=== PATIENT | female | born 1990 | race African-American/Black ===

== ENCOUNTER 2020-07-20 01:20 | Inpatient (IN) | payer OTHER ==
[~2020-07-20] VITALS: Ht 160 cm; Wt 90.7 kg
--- NOTE | 2020-07-20 01:50 | NUR ---
Pt. c/o chest pain and back pain 10/20 w/ numbness radiating to arms. Pt has hx sickle cell disease and reports she had a tia in feb. Pt. also has hx dvt, date unclear. Pt axox4, denies dizziness, changes in vision, sob.
[2020-07-20] MEDS ORDERED: KETOROLAC TROMETHAMINE 30 MG INJ IVP ONE (02:15)
[2020-07-20] MEDS ORDERED: HYDROMORPHONE 1 MG/1 ML DISP.SYRIN IV ONE ×2 (02:15→05:15)
[2020-07-20] MEDS ORDERED: IV D5W-0.45% NS 1000 ML BAG IV ONE (02:15)
[2020-07-20] MEDS ORDERED: KETOROLAC TROMETHAMINE 30 MG INJ ONE (02:28)
[2020-07-20] MEDS ORDERED: HYDROMORPHONE 2 MG/1 ML DISP.SYRIN ONE ×2 (02:29→05:34)
[2020-07-20 02:42] LABS: HEMATOCRIT 27.6 % (31.2-41.9); MEAN CORPUSCULAR HEMOGLOBIN 23.2 uug (24.7-32.8); MEAN CORPUSCULAR VOLUME 72.8 fL (75.5-95.3); PLATELET COUNT (AUTO) 280 K/uL (179-408)
[2020-07-20 02:56] LABS: CREATININE 0.7 mg/dL (0.6-1.3); POTASSIUM 2.9 mmol/L (3.5-5.1)
[2020-07-20 03:10] LABS: ALANINE AMINOTRANSFERASE 14 U/L (14-59); ALKALINE PHOSPHATASE 71 U/L (50-136); ASPARTATE AMINOTRANSFERASE 9 U/L (15-37); BILIRUBIN,DIRECT 0.1 mg/dL (0.0-0.2); BILIRUBIN,TOTAL 0.2 mg/dL (0.2-1.0); CREATINE KINASE, TOTAL 54 U/L (26-192); MAGNESIUM 1.6 mg/dL (1.8-2.4); PHOSPHOROUS 2.6 mg/dL (2.5-4.9); TOTAL PROTEIN, SERUM 6.4 g/dL (6.4-8.2)
[2020-07-20 03:18] LABS: ETHANOL < 3 MG/DL (0-0)
--- NOTE | 2020-07-20 03:23 | NUR ---
The patient is having procedure. ER nurse will call the services tech when the patient is ready to be scanned.
[2020-07-20] MEDS ORDERED: POTASSIUM CHLORIDE 20 MEQ TAB.PRT.SR PO ONE ×2 (03:30→08:30)
[2020-07-20 03:45] LABS: THYROID STIMULATING HORMONE 1.576 mIU/mL (0.358-3.740)
[2020-07-20] MEDS ORDERED: diphenhydrAMINE 50 MG/1 ML VIAL IV ONE (04:00)
[2020-07-20] MEDS: MAGNESIUM SULFATE/D5W 100 ML IV SCH ×2 (04:00→04:38)
[2020-07-20] MEDS ORDERED: diphenhydrAMINE 50 MG/1 ML VIAL ONE (04:23)
[2020-07-20] MEDS ORDERED: MAGNESIUM SULFATE 1 GM/2 ML VIAL ONE ×2 (04:23→05:33)
[2020-07-20] MEDS ORDERED: POTASSIUM CHLORIDE 20 MEQ TAB.PRT.SR ONE (04:24)
[2020-07-20] MEDS ORDERED: POTASSIUM CHLORIDE 20 MEQ POWDER PACKET PO STA (04:38)
[2020-07-20] MEDS ORDERED: POTASSIUM CHLORIDE 20 MEQ POWDER PACKET ONE (05:34)
--- NOTE | 2020-07-20 05:59 | NUR ---
At 033 K-Dur tablet were withdrawn from [facility] and offered to pt but pt refused medication because she states it makes her nauseous. notified and order was switched to potassium chloride powder packet which the pt. took. Pt. was rolled over before K-Dur tablets were able to be wasted in the pyxis. K-Dur tablets were wasted in pharmeacutical waste bin.
[2020-07-20] MEDS ORDERED: ENOXAPARIN SODIUM 80 MG/0.8 ML DISP.SYRIN SQ ONE (06:00)
[2020-07-20] MEDS ORDERED: ASPIRIN 325 MG TABLET PO ONE (06:00)
--- NOTE | 2020-07-20 06:07 | NUR ---
Report given to Remigio GUNDERSON for admission of pt. to telemetry.
--- NOTE | 2020-07-20 06:10 | NUR ---
Medication ordered at 0559. Pt. was rolled over at 0550 so unable to administer aspirin and lovenox. Charge nurse of 3rd floor made aware.
[2020-07-20] MEDS ORDERED: HYDROCODONE/APAP 5-325MG TABLET PO PRN (06:45)
[2020-07-20] MEDS ORDERED: HYDROMORPHONE 1 MG/1 ML DISP.SYRIN IV PRN ×2 (06:45→12:45)
[2020-07-20] MEDS ORDERED: ACETAMINOPHEN 325 MG TABLET PO PRN (06:45)
[2020-07-20] MEDS ORDERED: ONDANSETRON 4 MG/2 ML VIAL IV PRN (06:45)
[2020-07-20] MEDS ORDERED: OXYC10TA49 PO (06:46)
[2020-07-20] MEDS ORDERED: FOLI1TAB94 PO (06:46)
[2020-07-20] MEDS ORDERED: ASCO500P18 PO (06:46)
[2020-07-20] MEDS ORDERED: HYDROXYUREA (06:52)
[2020-07-20 06:58] VITALS: BP 103/64
[2020-07-20] MEDS: PANTOPRAZOLE SODIUM 40 MG TABLET.DR PO SCH (07:00)
[2020-07-20] MEDS ORDERED: IV NORMAL SALINE 250 ML IV ONE (07:11)
[2020-07-20] MEDS ORDERED: SWABABLE VALVE TRANSFER SET EA MC ONE (07:11)
[2020-07-20] MEDS ORDERED: IOHEXOL 350 100 ML INFUS..BTL ONE (07:11)
--- NOTE | 2020-07-20 07:30 | NUR ---
pt in bed resting, c/o 09/19 medication to be administered as ordered, bed low and locked call light within reach. pt on room air, no signs of distress, IV access on the right upper arm 22g patent and intact. pt ambulatory, a/ox4, will continue to monitor.
[2020-07-20] MEDS ORDERED: MAGNESIUM SULFATE/D5W 100 ML IV SCH (08:30)
[2020-07-20] MEDS: FOLIC ACID 1 MG TABLET PO SCH (09:48)
[2020-07-20] MEDS: CLOPIDOGREL 75 MG TABLET PO SCH (09:48)
[2020-07-20] MEDS ORDERED: HYDR500C2 PO (10:38)
[2020-07-20] MEDS: HYDROMORPHONE 2 MG/1 ML DISP.SYRIN IV PRN ×4 (11:47→21:47)
[2020-07-20 12:00] VITALS: BP 105/64
--- NOTE | 2020-07-20 14:30 | NUR ---
RECEIVED PATIENT. A&O X3. CONVERSING ON TELEPHONE.
[2020-07-20 16:00] VITALS: BP 116/61
[2020-07-20] MEDS: diphenhydrAMINE 50 MG/1 ML VIAL IV PRN (16:46)
--- NOTE | 2020-07-20 17:00 | NUR ---
MED IVP FOR C/O ITCHING, WITH GOOD EFFECT AFTER 30 MINS.
--- NOTE | 2020-07-20 19:00 | NUR ---
Received patient in bed A/Ox3. Patient is watching shows on her tablet device and wished to be left alone. no SOB noted, no complaints of distress.
[2020-07-20] MEDS: DOCUSATE SODIUM 100 MG CAPSULE PO SCH ×3 (20:51→21:00)
[2020-07-20] MEDS ORDERED: DOCUSATE SODIUM 250 MG CAPSULE PO SCH (21:00)
--- NOTE | 2020-07-20 21:12 | NUR ---
Patient is not being cooperative and compliant with her care. She has refused vital sign check by myself and the IMPREGNATOR OPERATOR, and she has refused her 2100 Colace medication. I explained the risk of severe constipation associate with frequent narcotic use and that the stool softeners will help prevent those complications. She understands and adamantly refuses anything but her pain medications.
--- NOTE | 2020-07-21 | NUR ---
PATIENT REASSIGNED RECEIVED TO MY CARE AT THIS TIME SHE IS IN BED AWAKE ALERT AND ORIENTED CONCENTRATING ON HER LAPTOP ON ROOM AIR WITH NO SHORTNESS OF BREATH MID LINE AND PERIPHERAL LINES BOTH ON HER LEFT UPPER ARM REMAINS INTACT WITH NO S/S OF INFILTERATION AT THIS TIME.TELE IS SR WITH NO ECTOPY CALL LIGHTS AND HER PERSONAL BELONGINGS ARE WITHIN EASY REACH WILL CONTINUE TO OBSERVE AND PROVIDE COMFORT.
[2020-07-21 00:15] VITALS: BP 107/75
[2020-07-21] MEDS: diphenhydrAMINE 50 MG/1 ML VIAL IV PRN ×3 (00:52→18:23)
[2020-07-21] MEDS: HYDROMORPHONE 2 MG/1 ML DISP.SYRIN IV PRN ×8 (00:52→21:58)
--- NOTE | 2020-07-21 01:00 | NUR ---
PATIENT STATED HAVING PAIN AND ITCHING REQUESTED FOR DILAUDID AND BENADRYL MEDICATED ORDERED MADE COMFORTABLE AND WILL CONTINUE TO OBSERVE.
[2020-07-21 04:40] VITALS: BP 95/57
--- NOTE | 2020-07-21 06:50 | NUR ---
PATIENT CONTINUE TO ASK FOR PAIN MEDICATIONS EVERY 3 HOURS AT TIMES SOONER MEDICATED ORDERED MADE COMFORTABLE MIDLINE RIGHT ARM IS INTACT WILL CONTINUE TO OBSERVE.
[2020-07-21] MEDS: PANTOPRAZOLE SODIUM 40 MG TABLET.DR PO SCH (06:55)
[2020-07-21 08:06] LABS: HEMATOCRIT 29.4 % (31.2-41.9); MEAN CORPUSCULAR HEMOGLOBIN 23.3 uug (24.7-32.8); MEAN CORPUSCULAR VOLUME 73.5 fL (75.5-95.3); PLATELET COUNT (AUTO) 313 K/uL (179-408)
[2020-07-21] MEDS: FOLIC ACID 1 MG TABLET PO SCH (08:16)
[2020-07-21] MEDS: CLOPIDOGREL 75 MG TABLET PO SCH (08:16)
[2020-07-21 08:22] LABS: BILIRUBIN,TOTAL 0.1 mg/dL (0.2-1.0); CREATININE 0.7 mg/dL (0.6-1.3); MAGNESIUM 1.8 mg/dL (1.8-2.4); PHOSPHOROUS 4.7 mg/dL (2.5-4.9); POTASSIUM 4.2 mmol/L (3.5-5.1); TOTAL PROTEIN, SERUM 6.6 g/dL (6.4-8.2)
--- NOTE | 2020-07-21 09:13 | NUR ---
CARE OF PATIENT ENDORSED PATIENT REMAINS AWAKE ALERT AND ORIENTED BLOOD PRESSURE AT THIS TIME IS 100/67
--- NOTE | 2020-07-21 10:12 | NUR ---
asleep when first taken over this patient, requested Dilaudid and Benadryl ivp together at 0945, secondary to sickle cell crisis, given. alert, oriented, and on bedrest
[2020-07-21 11:21] VITALS: BP 107/67
[2020-07-21 14:43] LABS: *BILIRUBIN,URIN NEGATIVE (NEGATIVE); *BLOOD, URINE NEGATIVE (NEGATIVE); *CLARITY,URINE CLEAR (CLEAR); *COLOR,URINE LIGHT YELLOW (YELLOW); *KETONES,URINE NEGATIVE (NEGATIVE); *UROBILINOGEN,URINE 0.2 E.U./dl (NORMAL); LEUKOCYTE ESTERASE ,URINE NEGATIVE (NEGATIVE); NITRITE, URINE NEGATIVE (NEGATIVE); UGLUCOSE NEGATIVE (NEGATIVE)
[2020-07-21 14:47] LABS: *AMPHETAMINE, URINE NEGATIVE (NEGATIVE); *CANNABINOID, URINE NEGATIVE (NEGATIVE); *COCCAINE, URINE NEGATIVE (NEGATIVE); *OPIATE, URINE POSITIVE (NEGATIVE); *PHENCYCLIDINE SCREEN,URINE NEGATIVE (NEGATIVE)
[2020-07-21 14:52] LABS: EOSINOPHILS % (MANUAL) 6 % (0-8); LYMPHOCYTES % (MANUAL) 20 % (20-40); MONOCYTES % (MANUAL) 14 % (2-10); NEUTROPHILS % (MANUAL) 60 % (42-75)
[2020-07-21 15:23] VITALS: BP 95/53
--- NOTE | 2020-07-21 15:25 | NUR ---
on hourly round, " became sob, ", advised to sit up in bed, and 2liter NC applied, requested 3liter, given asked if she could have Dilaudid earlier than 1544, " felt chest tightness", 2mg Dilaudid given per her request.
--- NOTE | 2020-07-21 20:00 | NUR ---
PATIENT ALERT ORIENTED, NO SOB NO CHEST PAIN NOTED, TELE MONITOR SINUS RHYTHM SINUS TACHY, PATIENT CONT ROUND THE CLOCK PAIN MEDICATION, PATIENT IN ROOM WATCHING ON HER LAP TOP, RELAX NO S/S OF PAIN. WILL MEDICATE FOR PAIN ORDERED.
[2020-07-21] MEDS: DOCUSATE SODIUM 100 MG CAPSULE PO SCH (20:02)
[2020-07-21 20:30] VITALS: BP 102/53
[2020-07-22 00:05] VITALS: BP 116/53
[2020-07-22] MEDS: HYDROMORPHONE 2 MG/1 ML DISP.SYRIN IV PRN ×3 (01:04→07:35)
[2020-07-22 04:35] VITALS: BP 110/86
[2020-07-22] MEDS: diphenhydrAMINE 50 MG/1 ML VIAL IV PRN (05:07)
--- NOTE | 2020-07-22 05:18 | NUR ---
PATIENT ALERT ORIENTED, NO SOB NO CHEST PAIN, TELE MONITOR SINUS RHYTHM SINUS TACHY, CONT ON PAIN MANAGEMENT DUE SICKLE CELL GEN BODY PAIN. PATIENT GIVEN PAIN MEDS ORDERED, CONT TO MONITOR.
[2020-07-22] MEDS: PANTOPRAZOLE SODIUM 40 MG TABLET.DR PO SCH (06:36)
[2020-07-22] MEDS: CLOPIDOGREL 75 MG TABLET PO SCH (08:13)
[2020-07-22] MEDS: FOLIC ACID 1 MG TABLET PO SCH (08:13)
[2020-07-22] MEDS ORDERED: HYDROMORPHONE 2 MG/1 ML DISP.SYRIN IV PRN (10:00)
[2020-07-22] MEDS ORDERED: diphenhydrAMINE 50 MG/1 ML VIAL IV PRN (10:00)
--- NOTE | 2020-07-22 10:10 | NUR ---
Patient received in bed awake, alert and oriented times 4. Patient is talking on the phone. No sign of distress noted. Patient is on room air. Patient has a right upper arm midline. Safety precaution methods are implemented. Will continue to monitor.
[2020-07-22] MEDS: HYDROMORPHONE 1 MG/1 ML DISP.SYRIN IV PRN ×2 (10:39→10:44)
[2020-07-22 11:22] VITALS: BP 105/52
--- NOTE | 2020-07-22 13:20 | NUR ---
Patient discharge to home with all belongings, paperwork and discharge instructions. Discharge teaching completed. ID band and midline removed. Belongings list completed and signed. Patient is stable with no sign of distress noted. Patient walked out of facility and her vehicle was parked in parking structure by security. All medications given as ordered.
== END 2020-07-22 13:20 | disposition home or self-care (01) | DRG 662 ==
LOC: ER 01:26 → TELE3 06:15
PROVIDERS: ADMIT Internal Medicine; ATTEND Internal Medicine
DX: D57.00 Hb-SS disease with crisis, unspecified (principal); E87.6 Hypokalemia; Z90.49 Acquired absence of other specified parts of digestive tract; Z90.81 Acquired absence of spleen; Z86.73 Personal history of transient ischemic attack (TIA), and cerebral infarction without residual deficits; Z86.718 Personal history of other venous thrombosis and embolism; Z20.822 Contact with and (suspected) exposure to COVID-19
CPT/HCPCS: 36415; 70030-TC; 70450; 71045; 71250; 83735; 84100; 84443; 85025; 93005; 93307; A4663; G0378; G0480; J1170; J1200; J1885; J3475; J3490; J7050; J7060; Q9967

== ENCOUNTER 2020-10-12 06:13 | Emergency (ER) | payer SELFPAY ==
[~2020-10-12] VITALS: Ht 160 cm; Wt 88.5 kg
[~2020-10-12 06:13] MED LIST: ASCO500P18 PO; FOLI1TAB94 PO; HYDR500C2 PO; OXYC10TA49 PO
[2020-10-12] MEDS ORDERED: diphenhydrAMINE 50 MG/1 ML VIAL IV ONE ×2 (06:45→09:45)
[2020-10-12] MEDS ORDERED: IV NORMAL SALINE 1000 ML BAG IV ONE (06:45)
[2020-10-12] MEDS ORDERED: ONDANSETRON 4 MG/2 ML VIAL IV ONE (06:45)
[2020-10-12] MEDS ORDERED: HYDROMORPHONE 1 MG/1 ML DISP.SYRIN IV ONE ×2 (06:45→09:45)
[2020-10-12] MEDS ORDERED: ASPI81TA31 PO (06:53)
[2020-10-12 07:17] LABS: HEMATOCRIT 30.7 % (31.2-41.9); MEAN CORPUSCULAR HEMOGLOBIN 21.5 uug (24.7-32.8); MEAN CORPUSCULAR VOLUME 68.8 fL (75.5-95.3); PLATELET COUNT (AUTO) 395 K/uL (179-408)
[2020-10-12 07:26] LABS: POTASSIUM 3.7 mmol/L (3.5-5.1)
[2020-10-12 07:32] LABS: BILIRUBIN,DIRECT 0.1 mg/dL (0.0-0.2); BILIRUBIN,TOTAL 0.3 mg/dL (0.2-1.0); TOTAL PROTEIN, SERUM 7.6 g/dL (6.4-8.2)
[2020-10-12] MEDS ORDERED: diphenhydrAMINE 50 MG/1 ML VIAL ONE ×2 (08:01→09:42)
[2020-10-12] MEDS ORDERED: ONDANSETRON 4 MG/2 ML VIAL ONE (08:01)
[2020-10-12] MEDS ORDERED: HYDROMORPHONE 2 MG/1 ML DISP.SYRIN ONE ×2 (08:01→09:42)
--- NOTE | 2020-10-12 08:21 | NUR ---
Grayson huddleston in [facility] - 10/12/20 at 0910 by VENUS Gave report to NEPTALI Bedoya
--- NOTE | 2020-10-12 09:01 | NUR ---
IV site on RT FA infiltrated, remove line. Pt states not being nausous anymore and is drinking water.
--- NOTE | 2020-10-12 09:50 | NUR ---
Removed IV intact, site okay, bandaged. Gave pt RX and d/c instructions, pt verbalized understanding.
[2020-10-12 09:54] VITALS: BP 110/78
== END 2020-10-12 09:55 | disposition home or self-care (01) ==
LOC: ER 06:23
DX: D57.00 Hb-SS disease with crisis, unspecified (principal); Z90.49 Acquired absence of other specified parts of digestive tract; Z90.81 Acquired absence of spleen; Z86.73 Personal history of transient ischemic attack (TIA), and cerebral infarction without residual deficits; Z86.711 Personal history of pulmonary embolism
CPT/HCPCS: 36415; 71045; 76937; 80048; 80076; 84484; 84702; 85025; 93005; 96374; 96375; 96376; 99285; J1170 ×2; J1200 ×2; J2405; 70030-TC; J7030

== ENCOUNTER 2020-10-14 12:27 | Inpatient (IN) | payer SELFPAY ==
[~2020-10-14] VITALS: Ht 160 cm; Wt 88.5 kg
[~2020-10-14 12:27] MED LIST changes: +ASPI81TA31 PO
--- NOTE | 2020-10-14 13:07 | NUR ---
Patient refused COVID test, notified. " I have sicke cell. I don't want Covid test." per patient's verbalization.
[2020-10-14] MEDS ORDERED: MORPHINE SULFATE 4 MG/1 ML DISP.SYRIN IV ONE (13:15)
--- NOTE | 2020-10-14 13:22 | NUR ---
Patient refused IV Morphine. "I want Dilaudid." per patient's verbalization, notified.
[2020-10-14] MEDS ORDERED: MORPHINE SULFATE 4 MG/1 ML DISP.SYRIN ONE (13:24)
[2020-10-14] MEDS ORDERED: ONDANSETRON 4 MG/2 ML VIAL IV ONE (13:30)
[2020-10-14] MEDS ORDERED: HYDROMORPHONE 1 MG/1 ML DISP.SYRIN IV ONE ×3 (13:30→17:15)
[2020-10-14] MEDS ORDERED: ONDANSETRON 4 MG/2 ML VIAL ONE (13:34)
[2020-10-14] MEDS ORDERED: HYDROMORPHONE 1 MG/1 ML DISP.SYRIN ONE ×3 (13:40→17:18)
[2020-10-14 13:44] LABS: HEMATOCRIT 32.5 % (31.2-41.9); MEAN CORPUSCULAR HEMOGLOBIN 21.6 uug (24.7-32.8); MEAN CORPUSCULAR VOLUME 70.8 fL (75.5-95.3); PLATELET COUNT (AUTO) 352 K/uL (179-408)
--- NOTE | 2020-10-14 13:44 | NUR ---
Patient want Benadryl after IV Dilaudid was given. No rashes seen. MD notified.
[2020-10-14 13:47] LABS: CREATININE 0.9 mg/dL (0.6-1.3); POTASSIUM 3.8 mmol/L (3.5-5.1)
[2020-10-14] MEDS ORDERED: IV NORMAL SALINE 1000 ML BAG IV ONE (14:00)
--- NOTE | 2020-10-14 14:25 | NUR ---
Patient is resting comfortably on gurney while using her personal electronic device, NAD.
--- NOTE | 2020-10-14 14:38 | NUR ---
Patient wants more IV MD Miya notified.
--- NOTE | 2020-10-14 16:24 | NUR ---
Patient is refusing COVID test until she gets more IV MD Miya notified.
--- NOTE | 2020-10-14 17:15 | NUR ---
Immediately after IV Dilaudid, patient wants Benadryl. MD notified.
--- NOTE | 2020-10-14 17:24 | NUR ---
Patient is seen busy talking using her cellphone, NAD, pending assigned med-surgical nurse & bed@this time.
[2020-10-14] MEDS ORDERED: diphenhydrAMINE 25 MG CAP PO ONE ×2 (17:30→17:33)
--- NOTE | 2020-10-14 17:30 | NUR ---
Patient refused oral Benadryl and wants IV MD Jersey notified.
--- NOTE | 2020-10-14 18:13 | NUR ---
Pending urine specimen still, hands off report given to nurse Salcedo.
[2020-10-14 18:18] VITALS: BP 107/67
--- NOTE | 2020-10-14 19:30 | NUR ---
RECEIVED PT AWAKE, ALERT AND ORIENTEDX4. PT IN NO ACUTE DISTRESS. IV INTACT. SAFETY AND COMFORT PROVIDED. WILL CONTINUE TO MONITOR.
[2020-10-14] MEDS ORDERED: ACETAMINOPHEN 325 MG TABLET PO PRN (19:45)
[2020-10-14] MEDS ORDERED: ONDANSETRON 4 MG/2 ML VIAL IV PRN (19:45)
[2020-10-14] MEDS ORDERED: HYDROCODONE/APAP 5-325MG TABLET PO PRN (19:45)
[2020-10-14] MEDS ORDERED: MORPHINE SULFATE 2 MG/1 ML DISP.SYRIN IV PRN (19:45)
[2020-10-14] MEDS ORDERED: MAGNESIUM HYDROXIDE 30 ML LIQUID UDC PO PRN (19:45)
[2020-10-14] MEDS ORDERED: Z GUARD REMEDY PASTE 57 GM TUBE TOP PRN (19:45)
[2020-10-14] MEDS: HYDROMORPHONE 2 MG/1 ML DISP.SYRIN IV PRN (20:31)
[2020-10-14] MEDS: IV 1/2NS 1000 ML 1,000 ML IV PRN (20:34)
[2020-10-14] MEDS: ENOXAPARIN SODIUM 40 MG/0.4 ML DISP.SYRIN SQ SCH (20:35)
--- NOTE | 2020-10-14 22:24 | NUR ---
At 2030h Dilaudid prn 2mg given for 10/10 pain. PT tolerated it well. After an hour pt stated it felt better but still having some pain. Will continue to monitor.
--- NOTE | 2020-10-14 23:00 | NUR ---
notify DR. Saul regarding pt requesting Dilaudid q3h instead of q4h. Waiting for reply. Hands off report to Hayley GUNDERSON
[2020-10-15] MEDS: HYDROMORPHONE 2 MG/1 ML DISP.SYRIN IV PRN ×8 (00:32→22:06)
[2020-10-15] MEDS: ZOLPIDEM 5 MG TABLET PO PRN ×2 (01:21→23:00)
[2020-10-15] MEDS: diphenhydrAMINE 25 MG CAP PO PRN (04:25)
[2020-10-15 04:50] VITALS: BP 109/61
[2020-10-15] MEDS ORDERED: diphenhydrAMINE 50 MG/1 ML VIAL IV ONE ×2 (05:30→14:15)
[2020-10-15] MEDS: IV 1/2NS 1000 ML 1,000 ML IV PRN (05:42)
--- NOTE | 2020-10-15 06:07 | NUR ---
Received report for patient from NEPTALI Taylor at 2300H. In no acute distress upon receiving patient. Receiving ordered fluids. Pain medications given PRN per patient's request. This morning, patient c/o full body itching and throat itching. Yung Esparza DREDGE PUMP OPERATOR notified with orders for one time Benadryl 50mg IV. Tolerated well. No acute distress noted. Denies SOB but patient is requesting to have oxygen via nasal canula for support. Will endorse to oncoming nurse.
[2020-10-15] MEDS: PANTOPRAZOLE SODIUM 40 MG TABLET.DR PO SCH (06:36)
--- NOTE | 2020-10-15 06:44 | NUR ---
Pt refused AM labs
[2020-10-15 12:13] VITALS: BP 100/57
--- NOTE | 2020-10-15 14:00 | NUR ---
Pt seen by DR Saul notified of pt c/o "RASH and HIVEs under her tight upper arm IV site secondary to Dilaudid per patient." NO rash noted or hives noted but pt insist that there are rash and hives under the IV site.
[2020-10-15 16:20] VITALS: BP 110/59
--- NOTE | 2020-10-15 17:30 | NUR ---
DR NORWOOD here to see patient for pain management . new order received.
[2020-10-15] MEDS ORDERED: OXYCODONE HCL 5 MG TABLET PO PRN (18:15)
[2020-10-15 18:26] LABS: *AMPHETAMINE, URINE NEGATIVE (NEGATIVE); *CANNABINOID, URINE NEGATIVE (NEGATIVE); *COCCAINE, URINE NEGATIVE (NEGATIVE); *OPIATE, URINE POSITIVE (NEGATIVE); *PHENCYCLIDINE SCREEN,URINE NEGATIVE (NEGATIVE)
[2020-10-15 18:54] LABS: *URINE HCG, QUAL NEGATIVE (NEGATIVE)
[2020-10-15 20:09] VITALS: BP 117/70
[2020-10-15] MEDS: ENOXAPARIN SODIUM 40 MG/0.4 ML DISP.SYRIN SQ SCH ×2 (20:39→20:42)
[2020-10-16] MEDS: HYDROMORPHONE 2 MG/1 ML DISP.SYRIN IV PRN ×8 (01:37→23:58)
--- NOTE | 2020-10-16 05:10 | NUR ---
Received pt resting in bed. Axo 4. VSS. C/o of germanize pain and wants IV Dilaudid Q3H PRN. Administered Dilaudid @5829, 2296, 8330. Patient aware of other medication available for pain and only requests for Dilaudid. IV site on right hand and right upper chest wall infiltrated. Established new IV site left hand 24 g, patent and intact running Fluids. Pt calling around the clock. Pt request ambien administered. Patient wanted Benadryl after IV Dilaudid was given. No rashes seen, not given. Pt refused Lovenox. Pt slept poorly throughout he night. Needs attended to in a timely manner. Safety measures maintained. call light and all personal belongings within pt reach. Will endorse to oncoming nurse and continue to monitor. Addendum: 10/16/20 at 0651 by LIBERTAD LIMA RN RN generalized pain due to sick cell
[2020-10-16 05:53] VITALS: BP 111/60
[2020-10-16] MEDS: PANTOPRAZOLE SODIUM 40 MG TABLET.DR PO SCH (06:29)
--- NOTE | 2020-10-16 06:51 | NUR ---
pt requesting PRN Dilaudid medication every 3 hours and and ahead of schedule. Pt is upset not received medications in a timely manner. Discussed with pt if medications is effective, if not encouraged pt to take oxycodone PRN. Pt refused. Discussed with nursing Window Cutter, made aware of the situation. Will endorse to oncoming shift accordingly.
[2020-10-16 07:27] LABS: HEMATOCRIT 30.2 % (31.2-41.9); MEAN CORPUSCULAR HEMOGLOBIN 21.8 uug (24.7-32.8); PLATELET COUNT (AUTO) 372 K/uL (179-408)
[2020-10-16 07:38] LABS: CREATININE 0.9 mg/dL (0.6-1.3); PHOSPHOROUS 4.2 mg/dL (2.5-4.9); POTASSIUM 4.2 mmol/L (3.5-5.1)
--- NOTE | 2020-10-16 07:57 | NUR ---
patient received laying in bed aox4, patient states she is having 9/10 pain, pain radiating from joints per patient, patient requests prn dilaudid, prn dialudid administered, per patient "i am itchy im getting rashes and began to scratch on left hand near iv site." request benadryl for rashes. assessed patient, there are not rashes to surrounding area or any where in body, explained to patient that i will closely monitor and if rashes do appear md will be notified and prn antihistamine will be administer. call light within reach, side rails up x 2. iv site to left hand in place and patent, flushing fine, no redness to surrounding area, no seeping noted from site.
[2020-10-16] MEDS: IV 1/2NS 1000 ML 1,000 ML IV PRN (08:06)
[2020-10-16 08:48] LABS: THYROID STIMULATING HORMONE 2.666 mIU/mL (0.358-3.740)
--- NOTE | 2020-10-16 09:57 | NUR ---
patient called asking for prn Dilaudid, explained to patient that PRN Dilaudid is every 3 hours and it was too soon to administer, offered other pain medication, patient visibly upset states " no ill wait."
[2020-10-16 12:00] VITALS: BP 107/47
[2020-10-16 16:15] VITALS: BP 97/52
--- NOTE | 2020-10-16 17:43 | NUR ---
1054: patient called stating pain 9/10 from joints, requesting prn dialudid and asking if iv site could be switched. iv site reassessed flushing well, no resistance, surrounding area is free of redness of swelling, reassured patient iv site is working well and there is no need to start a new line. patient asked for following pain medication time and patient made aware she could receive pain medication in 3 hours around 1354.
--- NOTE | 2020-10-16 17:47 | NUR ---
patient calling for prn Dilaudid states "why do you guys so too long to come", explained to patient that medication can only be administered at correct times and not earlier but that there are other medications available, patient again stating that iv site needs to be changed, iv site reassessed, iv site patent, no resistance, free from swelling or redness. explained to patient that iv site remains patent. per patient "ok" IV Dilaudid administered at 1747 no adverse reactions noted. side rails up x2, call light within reach, v/s wnl, rr: 19
--- NOTE | 2020-10-16 20:00 | NUR ---
Pt a/ox4, c/o pain 11/19 r/t sickle cell crisis, pain med not due til 2047. Pt also requested iv Benadryl. Pt informed that PO is ordered. Pt refused PO and asked if i can page the md. I texted md but not response. 0315 Pt asked to page md and I received call back from md but no order. I encouraged to take PO Benadryl, pt agreed then few minutes she stated that she was going ama because still having pain and having personal issues. Pt said, "that she was taking uber to her boyfriend's house because they have broken up and her car is there."
[2020-10-16 20:18] VITALS: BP 111/65
[2020-10-16] MEDS: ENOXAPARIN SODIUM 40 MG/0.4 ML DISP.SYRIN SQ SCH (21:00)
[2020-10-17] MEDS: ZOLPIDEM 5 MG TABLET PO PRN (01:14)
[2020-10-17] MEDS: HYDROMORPHONE 2 MG/1 ML DISP.SYRIN IV PRN ×2 (03:00→04:34)
[2020-10-17] MEDS: diphenhydrAMINE 25 MG CAP PO PRN (03:31)
== END 2020-10-17 07:00 | disposition left against medical advice (07) | DRG 812 ==
LOC: ER 12:27 → MEDSURG3 17:55
PROVIDERS: ADMIT Student in an Organized Health Care Education/Training Program; ATTEND Student in an Organized Health Care Education/Training Program
DX: D57.00 Hb-SS disease with crisis, unspecified (principal); G89.4 Chronic pain syndrome; Z79.891 Long term (current) use of opiate analgesic; Z82.49 Family history of ischemic heart disease and other diseases of the circulatory system; Z86.711 Personal history of pulmonary embolism; Z86.73 Personal history of transient ischemic attack (TIA), and cerebral infarction without residual deficits; Z90.81 Acquired absence of spleen; Z83.3 Family history of diabetes mellitus; Z88.0 Allergy status to penicillin; Z20.822 Contact with and (suspected) exposure to COVID-19; Z82.3 Family history of stroke
CPT/HCPCS: 36415; 70030-TC; 71045; 84100; 84443; 84703; 85025; G0378; J1170; J1200; J1650; J2270; J2405; J3490; Q0163

== ENCOUNTER 2020-11-12 18:43 | Inpatient (IN) | payer SELFPAY ==
[~2020-11-12] VITALS: Ht 160 cm; Wt 91.2 kg
--- NOTE | 2020-11-12 19:30 | NUR ---
Dr. Ardon at bedside for MSE.
[2020-11-12] MEDS ORDERED: HYDROMORPHONE 1 MG/1 ML DISP.SYRIN IV ONE ×3 (19:45→23:00)
[2020-11-12] MEDS ORDERED: ONDANSETRON 4 MG/2 ML VIAL IV ONE (19:45)
[2020-11-12] MEDS ORDERED: IV NS 1000 ML 1,000 ML IV ONE ×3 (19:45→23:00)
[2020-11-12] MEDS ORDERED: diphenhydrAMINE 50 MG/1 ML VIAL IV ONE ×2 (19:45→22:00)
[2020-11-12] MEDS ORDERED: ONDANSETRON 4 MG/2 ML VIAL ONE (20:02)
[2020-11-12] MEDS ORDERED: HYDROMORPHONE 2 MG/1 ML DISP.SYRIN ONE ×3 (20:02→23:21)
[2020-11-12] MEDS ORDERED: diphenhydrAMINE 50 MG/1 ML VIAL ONE ×2 (20:02→21:17)
[2020-11-12 20:12] LABS: HEMATOCRIT 31.2 % (31.2-41.9); MEAN CORPUSCULAR VOLUME 66.8 fL (75.5-95.3); PLATELET COUNT (AUTO) 495 K/uL (179-408)
[2020-11-12 20:18] LABS: CREATININE 0.9 mg/dL (0.6-1.3); POTASSIUM 3.7 mmol/L (3.5-5.1)
[2020-11-12 20:33] LABS: EOSINOPHILS % (MANUAL) 6 % (0-8); LYMPHOCYTES % (MANUAL) 30 % (20-40); MONOCYTES % (MANUAL) 7 % (2-10); NEUTROPHILS % (MANUAL) 57 % (42-75)
--- NOTE | 2020-11-12 23:05 | NUR ---
Paged Epic panel, waiting for Yung Esparza RECEIVABLE MANAGER to call back.
--- NOTE | 2020-11-12 23:48 | NUR ---
Dr. Ardon on panel call with Yung Esparza DNP. Patient accepted for admission to [facility], diagnosis: Sickle Cell Crisis.
[2020-11-13] MEDS ORDERED: diphenhydrAMINE 50 MG/1 ML VIAL ONE (00:09)
[2020-11-13] MEDS ORDERED: ACETAMINOPHEN 325 MG TABLET PO PRN (00:15)
[2020-11-13] MEDS ORDERED: diphenhydrAMINE 50 MG/1 ML VIAL IV ONE (00:15)
[2020-11-13] MEDS ORDERED: ONDANSETRON 4 MG/2 ML VIAL IV PRN (00:15)
[2020-11-13] MEDS ORDERED: Z GUARD REMEDY PASTE 57 GM TUBE TOP PRN (00:15)
[2020-11-13] MEDS: ENOXAPARIN SODIUM 40 MG/0.4 ML DISP.SYRIN SQ SCH ×3 (00:15→20:48)
--- NOTE | 2020-11-13 00:50 | NUR ---
Transfered to 3rd floor Tele via wheelchair with no distress noted.
[2020-11-13] MEDS: IV 1/2NS 1000 ML 1,000 ML IV PRN ×2 (01:18→21:27)
[2020-11-13 01:43] VITALS: BP 122/80
[2020-11-13] MEDS: HYDROMORPHONE 1 MG/1 ML DISP.SYRIN IV PRN ×2 (02:07→06:06)
[2020-11-13 04:43] VITALS: BP 105/61
--- NOTE | 2020-11-13 05:11 | NUR ---
Pt admitted to [facility] for sickle cell crisis. Denies SOB. C/o pain that is relieved by morphine. Pt requested that her Dilaudid 2mg Q4H be changed to Q3H and also requested IV Benadryl, HOME HEALTH CARE PROVIDER Reese Rajan notified but he declined the patient's request. IV site is intact. Pt keeps removing her car shagger. Explained purpose of monitor but patient still keeps taking it off. Otherwise patient is not in any distress at this time. Will endorse to day shift. Addendum: 11/13/20 at 0515 by ANIBAL RODRIGUEZ RN Pain is relieved by Dilaudid, not Morphine.
[2020-11-13] MEDS: ASPIRIN 81 MG TAB.CHEW PO SCH (08:41)
[2020-11-13] MEDS: FOLIC ACID 1 MG TABLET PO SCH (08:41)
[2020-11-13] MEDS: PANTOPRAZOLE SODIUM 40 MG VIAL IV SCH (08:41)
[2020-11-13] MEDS: ASCORBIC ACID 500 MG TABLET PO SCH (08:41)
[2020-11-13] MEDS: HYDROXYUREA 500 MG CAPSULE PO SCH ×2 (09:00→17:00)
[2020-11-13 09:35] LABS: MEAN CORPUSCULAR HEMOGLOBIN 21.5 uug (24.7-32.8); MEAN CORPUSCULAR VOLUME 67.6 fL (75.5-95.3); PLATELET COUNT (AUTO) 426 K/uL (179-408)
[2020-11-13 09:37] LABS: BILIRUBIN,TOTAL 0.2 mg/dL (0.2-1.0); MAGNESIUM 1.7 mg/dL (1.8-2.4); PHOSPHOROUS 4.1 mg/dL (2.5-4.9); POTASSIUM 3.9 mmol/L (3.5-5.1); TOTAL PROTEIN, SERUM 6.6 g/dL (6.4-8.2)
[2020-11-13] MEDS ORDERED: HYDROMORPHONE 2 MG/1 ML DISP.SYRIN IV PRN (09:45)
[2020-11-13 09:46] LABS: THYROID STIMULATING HORMONE 2.237 mIU/mL (0.358-3.740)
[2020-11-13 11:42] VITALS: BP 119/65
[2020-11-13] MEDS: HYDROMORPHONE 2 MG/1 ML DISP.SYRIN IV PRN ×3 (13:03→21:23)
[2020-11-13] MEDS: diphenhydrAMINE 50 MG/1 ML VIAL IV PRN ×2 (14:00→21:23)
--- NOTE | 2020-11-13 14:15 | NUR ---
Pt is a/o x 4, sinus rhythm, on room air. She is ambulatory, has R upper arm and R AC IV access 22 g. Pt asks for Dilaudid Q3H for generalized pain and also gets Benadryl Q8H for itchiness from Dilaudid. No visible rash or reaction noted. Pt is currently not in acute distress. Will continue to monitor.
[2020-11-13 16:00] VITALS: BP 98/58
--- NOTE | 2020-11-13 19:00 | NUR ---
Pt complained of Right upper arm Iv access stiffness. No apparent infiltration. endorsed to table games shift manager. Able to flush R AC iv access.
--- NOTE | 2020-11-13 19:35 | NUR ---
RECEIVED PATIENT AWAKE IN BED. A/O X4. PATIENT IS UPSET, C/O DISCOMFORT IN RIGHT UPPER/LOWER ARM. IV HEPLOCK X2 NOTED, BOTH #20 GAUGES. REDNESS AND SWELLING NOTED TO AROUND SITES, UNABLE TO FLUSH AND WHEN REMOVED, BOTH IV'S ALREADY BENT AND DISLODGED. SUPERVISOR STAVE CUTTING AT BEDSIDE TO FURTHER ASSESS. PATIENT STATED THAT SHE HAS BEEN C/O OF PAIN SINCE 0. WILL CONTINUE TO MONITOR AND ASSESS.
[2020-11-13 20:00] VITALS: BP_SYST 105; BP_SYST 117; BP_DIAS 63; BP_DIAS 66
--- NOTE | 2020-11-13 21:30 | NUR ---
CLINICAL STAFF ANESTHESIOLOGIST AT BEDSIDE TO INSERT NEW IV. PATIENT IS A VERY HARD STICK.
--- NOTE | 2020-11-13 23:00 | NUR ---
MID-LINE NURSE AT BEDSIDE TO INSERT MID-LINE. MID-LINE NOTED TO RIGHT UPPER ARM #18 GAUGE, IVF INFUSING WELL ORDERED. ALL NEEDS ATTENDED. WILL CONTINUE TO MONITOR AND ASSESS.
[2020-11-14] VITALS: BP_SYST 110; BP_SYST 111; BP_DIAS 52
[2020-11-14] MEDS: HYDROMORPHONE 2 MG/1 ML DISP.SYRIN IV PRN ×3 (00:45→08:36)
[2020-11-14 04:00] VITALS: BP 111/60
[2020-11-14] MEDS: IV 1/2NS 1000 ML 1,000 ML IV PRN (05:33)
--- NOTE | 2020-11-14 06:27 | NUR ---
PATIENT ASLEEP IN BED. ON TELE SR. VS WNL. SLEPT AT INTERVALS THROUGHOUT THE NIGHT. CALL LIGHT IN REACH. WILL CONTINUE TO MONITOR AND ASSESS.
--- NOTE | 2020-11-14 08:00 | NUR ---
Midline was inserted on right upper arm 18g during night filler due to infiltrated IV access.
--- NOTE | 2020-11-14 08:00 | NUR ---
Received pt from night auditor RN. pt is awake in room, complaining of generalized pain in the back. She also asks for benadryl because she states that she gets itchy from the Dilaudid. No visible rash on pt upon assessment. Pt is refusing to take hydroxyurea at all due hours. She stated that she had a stillborn a month ago from taking the medication while and is traumatized and does not want that medication. Provided pain medication and benadryl, will continue to monitor.
--- NOTE | 2020-11-14 08:35 | NUR ---
D/Cd from telemetry per MD order.
[2020-11-14] MEDS: diphenhydrAMINE 50 MG/1 ML VIAL IV PRN ×2 (08:38→12:17)
[2020-11-14] MEDS: ASPIRIN 81 MG TAB.CHEW PO SCH (08:38)
[2020-11-14] MEDS: PANTOPRAZOLE SODIUM 40 MG VIAL IV SCH (08:38)
[2020-11-14] MEDS: ASCORBIC ACID 500 MG TABLET PO SCH (08:38)
[2020-11-14] MEDS: FOLIC ACID 1 MG TABLET PO SCH (08:38)
[2020-11-14] MEDS: HYDROXYUREA 500 MG CAPSULE PO SCH (08:55)
[2020-11-14] MEDS ORDERED: MAGNESIUM OXIDE 400 MG TABLET PO ONE (09:30)
[2020-11-14] MEDS ORDERED: HYDROMORPHONE 1 MG/1 ML DISP.SYRIN IV PRN (09:30)
--- NOTE | 2020-11-14 10:02 | NUR ---
Pt refused chest Xray, she stated that she does not have chest pain and does not want the exposure.
--- NOTE | 2020-11-14 10:30 | NUR ---
Pt stated that she vomited in the bathroom and is feeling nauseated. Administered Zofran IV. Will continue to monitor.
[2020-11-14 11:33] VITALS: BP 99/50
--- NOTE | 2020-11-14 11:45 | NUR ---
Pt stated she is not nauseated anymore. She has not thrown up since earlier. Pt ate her lunch and tolerated well. Provided emesis bag but pt has not needed to use it.
[2020-11-14] MEDS ORDERED: OXYC-133 PO (12:58)
--- NOTE | 2020-11-14 14:39 | NUR ---
Pt is being discharged. Pt is a/o x 4, all belongings signed for and in hand. She is ambulatory and not showing signs of acute distress or discomfort at this time. When giving discharge instructions at bedside, I asked pt if she has a car here because I saw a note in her chart that she had consented for [facility] staff to park her car. Pt got defensive and stated that I was making her drive. I explained to her that I am only asking if her vehicle is still here at [facility] and I only want to know her mode of transport upon discharge. She said, "No, you're telling me to drive so I'll tell my ride not to come anymore and I'll drive myself and if something happens I'm going to say that you made me drive." I explained again that that was not my intention and restated that I was only confirming if she has a vehicle here and not implying that she drives the car home. Provided resources, medication orders, and educational topics. Pt was walked down and directed towards the parking lot.
[2020-11-15] MEDS ORDERED: PANTOPRAZOLE SODIUM 40 MG TABLET.DR PO SCH (07:00)
== END 2020-11-14 14:38 | disposition home or self-care (01) | DRG 812 ==
LOC: ER 18:45 → TELE3 23:50 → MEDSURG3 11-14 08:50
PROVIDERS: ADMIT Internal Medicine; ATTEND Internal Medicine
PROC: 05H533Z Insertion of Infusion Device into Right Subclavian Vein, Percutaneous Approach (ICD-10-PCS; principal; 2020-11-13)
PROC: B546ZZA Ultrasonography of Right Subclavian Vein, Guidance (ICD-10-PCS; 2020-11-13)
DX: D57.00 Hb-SS disease with crisis, unspecified (principal); E66.9 Obesity, unspecified; Z90.81 Acquired absence of spleen; Z88.0 Allergy status to penicillin; Z68.35 Body mass index [BMI] 35.0-35.9, adult; D50.9 Iron deficiency anemia, unspecified; Z20.822 Contact with and (suspected) exposure to COVID-19; Z79.891 Long term (current) use of opiate analgesic; Z86.73 Personal history of transient ischemic attack (TIA), and cerebral infarction without residual deficits; Z86.711 Personal history of pulmonary embolism
CPT/HCPCS: 36415; 70030-TC; 82652; 83550; 83735; 84100; 84443; 85025; 85730; 93005; A4663; C9113; G0378; J1170; J1200; J1650; J2405; J3490; J7030

== ENCOUNTER 2020-12-03 01:08 | Emergency (ER) | payer SELFPAY ==
[~2020-12-03] VITALS: Ht 160 cm; Wt 93.4 kg
[~2020-12-03 01:08] MED LIST changes: +OXYC-133 PO; -OXYC10TA49 PO
--- NOTE | 2020-12-03 01:25 | NUR ---
PT AMBULATED TO ER WITH C/O FLANK PAIN AND BODY PAIN X3 DAYS, HX SICKLE CELL.
--- NOTE | 2020-12-03 01:40 | NUR ---
DR. CHEN AT BEDSIDE, MSE IN PROGRESS.
[2020-12-03] MEDS ORDERED: diphenhydrAMINE 50 MG/1 ML VIAL IV ONE ×2 (01:45→05:00)
[2020-12-03] MEDS ORDERED: IV NS 1000 ML 1,000 ML IV ONE ×2 (01:45→05:00)
[2020-12-03] MEDS ORDERED: HYDROMORPHONE 1 MG/1 ML DISP.SYRIN IV ONE ×3 (01:45→05:00)
[2020-12-03 01:57] LABS: *BILIRUBIN,URIN NEGATIVE (NEGATIVE); *BLOOD, URINE 1+ (NEGATIVE); *CLARITY,URINE CLEAR (CLEAR); *COLOR,URINE YELLOW (YELLOW); *KETONES,URINE NEGATIVE (NEGATIVE); *UROBILINOGEN,URINE 0.2 E.U./dl (NORMAL); LEUKOCYTE ESTERASE ,URINE NEGATIVE (NEGATIVE); NITRITE, URINE NEGATIVE (NEGATIVE); UGLUCOSE NEGATIVE (NEGATIVE)
[2020-12-03] MEDS ORDERED: diphenhydrAMINE 50 MG/1 ML VIAL ONE ×2 (01:58→05:07)
[2020-12-03] MEDS ORDERED: HYDROMORPHONE 2 MG/1 ML DISP.SYRIN ONE ×3 (01:59→05:07)
[2020-12-03 02:12] LABS: BACTERIA,URINE NONE SEEN /HPF (NONE SEEN); SQUAMOUS EPITHELIAL CELL,UR MODERATE /HPF (NONE SEEN); WBC,URINE 0-3 /HPF (0-3)
--- NOTE | 2020-12-03 02:15 | NUR ---
Patient is resting comfortably in bed, awake and watching TV.
[2020-12-03 03:14] LABS: HEMATOCRIT 28.7 % (31.2-41.9); MEAN CORPUSCULAR HEMOGLOBIN 20.6 uug (24.7-32.8); MEAN CORPUSCULAR VOLUME 66.1 fL (75.5-95.3); PLATELET COUNT (AUTO) 402 K/uL (179-408); POTASSIUM 3.8 mmol/L (3.5-5.1)
--- NOTE | 2020-12-03 03:44 | NUR ---
DR. CHEN GAVE T.O. ORDER FOR DILAUDID 2 MG VIA IV.
[2020-12-03] MEDS ORDERED: OXYC-133 PO (05:05)
[2020-12-03] MEDS ORDERED: DIPH50CA37 GT (05:05)
--- NOTE | 2020-12-03 05:30 | NUR ---
Patient is resting comfortably in bed, noted to be using her cell phone. Denies any pain/discomfort at the moment.
--- NOTE | 2020-12-03 05:56 | NUR ---
Patient discharged to home in stable condition. Denies any pain/discomfort upon discharge. Written and verbal after care instructions given. Patient verbalizes understanding of instructions. Stressed follow up or return to ER for worsening s/s. Steady gait.
[2020-12-03 05:57] VITALS: BP 138/79
== END 2020-12-03 05:57 | disposition home or self-care (01) ==
LOC: EDBD 01:09 → ER 01:09
DX: D57.00 Hb-SS disease with crisis, unspecified (principal); Z90.49 Acquired absence of other specified parts of digestive tract; Z90.81 Acquired absence of spleen; Z86.73 Personal history of transient ischemic attack (TIA), and cerebral infarction without residual deficits; Z87.440 Personal history of urinary (tract) infections; Z79.82 Long term (current) use of aspirin
CPT/HCPCS: 36415; 80048; 81001; 85025; 87040; 87086; 96361; 96374; 96375; 96376; 99284; J1170 ×3; J1200 ×2; A4663; J7030

== ENCOUNTER 2020-12-15 22:00 | Emergency (ER) | payer SELFPAY ==
[~2020-12-15] VITALS: Ht 160 cm; Wt 91.2 kg
[~2020-12-15 22:00] MED LIST changes: +DIPH50CA37 GT
[2020-12-16] MEDS ORDERED: OXYCODONE/APAP 5-325 MG TABLET PO ONE (01:30)
[2020-12-16] MEDS ORDERED: OXYCODONE/APAP 5-325 MG TABLET ONE (01:42)
[2020-12-16] MEDS ORDERED: HYDROMORPHONE 1 MG/1 ML DISP.SYRIN IV ONE ×3 (01:45→05:30)
[2020-12-16] MEDS ORDERED: diphenhydrAMINE 50 MG/1 ML VIAL IV ONE ×2 (01:45→04:00)
[2020-12-16] MEDS ORDERED: IV NS 1000 ML 1,000 ML IV ONE (01:45)
[2020-12-16] MEDS ORDERED: ONDANSETRON 4 MG/2 ML VIAL IV ONE (01:45)
[2020-12-16] MEDS ORDERED: IOHEXOL 300MG/ML 100 ML INFUS..BTL ONE (01:58)
[2020-12-16] MEDS ORDERED: SWABABLE VALVE TRANSFER SET EA MC ONE (01:58)
[2020-12-16] MEDS ORDERED: IV NORMAL SALINE 250 ML IV ONE (01:58)
[2020-12-16] MEDS ORDERED: diphenhydrAMINE 50 MG/1 ML VIAL ONE ×2 (02:53→04:02)
[2020-12-16 02:54] LABS: CREATININE 1.1 mg/dL (0.6-1.3); MEAN CORPUSCULAR HEMOGLOBIN 20.5 uug (24.7-32.8); MEAN CORPUSCULAR VOLUME 65.3 fL (75.5-95.3); PLATELET COUNT (AUTO) 429 K/uL (179-408); POTASSIUM 3.5 mmol/L (3.5-5.1)
[2020-12-16] MEDS ORDERED: ONDANSETRON 4 MG/2 ML VIAL ONE (02:54)
[2020-12-16] MEDS ORDERED: HYDROMORPHONE 1 MG/1 ML DISP.SYRIN ONE ×3 (02:54→05:37)
[2020-12-16 04:27] LABS: *URINE HCG, QUAL NEGATIVE (NEGATIVE)
--- NOTE | 2020-12-16 04:39 | NUR ---
Pt to CT
--- NOTE | 2020-12-16 04:56 | NUR ---
Pt back from CT
[2020-12-16] MEDS ORDERED: OXYC-128 PO (05:22)
--- NOTE | 2020-12-16 05:40 | NUR ---
IV removed. Catheter intact and site benign. Pressure and 4x4 gauze applied to site. No bleeding noted.
--- NOTE | 2020-12-16 05:42 | NUR ---
Patient discharged to home in stable condition. Written and verbal after care instructions given. Patient verbalizes understanding of instructions. Stressed follow up or return to ER for worsening s/s.
[2020-12-16 05:44] VITALS: BP 109/64
== END 2020-12-16 05:45 | disposition home or self-care (01) ==
LOC: ER 22:02
DX: R10.2 Pelvic and perineal pain (principal); D57.1 Sickle-cell disease without crisis; Z97.5 Presence of (intrauterine) contraceptive device; Z90.49 Acquired absence of other specified parts of digestive tract; Z90.81 Acquired absence of spleen; Z88.1 Allergy status to other antibiotic agents; Z88.0 Allergy status to penicillin; Z86.73 Personal history of transient ischemic attack (TIA), and cerebral infarction without residual deficits; Z79.82 Long term (current) use of aspirin
CPT/HCPCS: 36415; 74177; 80048; 84703; 85025; 96361; 96374; 96375; 96376; 99285; J1170 ×3; J1200 ×2; J2405; Q9967; A4663; J7030; J7050

== ENCOUNTER 2021-01-17 01:05 | Emergency (ER) | payer SELFPAY ==
[~2021-01-17] VITALS: Ht 162.6 cm; Wt 97.5 kg
[~2021-01-17 01:05] MED LIST changes: +OXYC-128 PO
[2021-01-17] MEDS ORDERED: OXYCODONE/APAP 5-325 MG TABLET PO ONE (01:30)
[2021-01-17] MEDS ORDERED: OXYCODONE/APAP 5-325 MG TABLET ONE (01:40)
[2021-01-17] MEDS ORDERED: KETOROLAC TROMETHAMINE 60 MG INJ IM ONE ×2 (01:45→01:47)
[2021-01-17 02:00] LABS: *BILIRUBIN,URIN NEGATIVE (NEGATIVE); *BLOOD, URINE 1+ (NEGATIVE); *CLARITY,URINE CLEAR (CLEAR); *COLOR,URINE YELLOW (YELLOW); *KETONES,URINE NEGATIVE (NEGATIVE); *UROBILINOGEN,URINE 0.2 E.U./dl (NORMAL); LEUKOCYTE ESTERASE ,URINE NEGATIVE (NEGATIVE); NITRITE, URINE NEGATIVE (NEGATIVE); PH,URINE 6.5 (5.0-8.0); UGLUCOSE NEGATIVE (NEGATIVE)
[2021-01-17] MEDS ORDERED: OXYC-128 PO (02:02)
[2021-01-17 02:07] VITALS: BP 127/80
[2021-01-17 02:11] LABS: BACTERIA,URINE NONE SEEN /HPF (NONE SEEN); MUCUS,URINE FEW /LPF (0-FEW); SQUAMOUS EPITHELIAL CELL,UR MODERATE /HPF (NONE SEEN); WBC,URINE 0-3 /HPF (0-3)
== END 2021-01-17 02:08 | disposition home or self-care (01) ==
LOC: ER 01:08
DX: S30.0XXA Contusion of lower back and pelvis, initial encounter (principal); W00.0XXA Fall on same level due to ice and snow, initial encounter; Y93.21 Activity, ice skating; Y92.330 Ice skating rink (indoor) (outdoor) as the place of occurrence of the external cause; D57.1 Sickle-cell disease without crisis; Z86.73 Personal history of transient ischemic attack (TIA), and cerebral infarction without residual deficits; Z90.49 Acquired absence of other specified parts of digestive tract; Z90.81 Acquired absence of spleen; Z88.1 Allergy status to other antibiotic agents; Z88.0 Allergy status to penicillin
CPT/HCPCS: 72220; A4663; J1885

== ENCOUNTER 2021-03-21 03:02 | Emergency (ER) | payer SELFPAY ==
[~2021-03-21] VITALS: Ht 160 cm; Wt 97.5 kg
--- NOTE | 2021-03-21 03:12 | NUR ---
PT AMBULATED TO ER C/O BILATERAL HIP AND KNEE PAIN D/T SICKLE CELL DISEASE. PT A/O X4, NO SOB OR LABORED BREATHING, AFEBRILE. DENIES ANY CP/PRESSURE. NO GI/ DISTRESS. CLEAR SPEECH, COMPLETE SENTENCES.
--- NOTE | 2021-03-21 03:22 | NUR ---
DR. CHEN AT BEDSIDE, MSE IN PROGRESS.
[2021-03-21] MEDS ORDERED: HYDROMORPHONE 1 MG/1 ML DISP.SYRIN IV ONE ×2 (03:30→05:00)
[2021-03-21] MEDS ORDERED: IV NS 1000 ML 1,000 ML IV ONE ×2 (03:30→05:00)
[2021-03-21] MEDS ORDERED: HYDROMORPHONE 2 MG/1 ML DISP.SYRIN ONE ×2 (03:55→05:14)
[2021-03-21] MEDS ORDERED: diphenhydrAMINE 50 MG/1 ML VIAL IV ONE (04:15)
[2021-03-21 04:23] LABS: HEMATOCRIT 26.7 % (31.2-41.9); MEAN CORPUSCULAR HEMOGLOBIN 19.1 uug (24.7-32.8); MEAN CORPUSCULAR VOLUME 60.9 fL (75.5-95.3); PLATELET COUNT (AUTO) 411 K/uL (179-408)
[2021-03-21] MEDS ORDERED: diphenhydrAMINE 50 MG/1 ML VIAL ONE ×2 (04:23→05:15)
[2021-03-21 04:37] LABS: CREATININE 0.9 mg/dL (0.6-1.3)
--- NOTE | 2021-03-21 05:59 | NUR ---
PT AMBULATED TO RESTROOM, STEADY GAIT.
[2021-03-21] MEDS ORDERED: LABETALOL HCL 100 MG/20 ML VIAL IV PRN (06:00)
[2021-03-21] MEDS ORDERED: diphenhydrAMINE 50 MG CAPSULE GT PRN (06:00)
[2021-03-21] MEDS ORDERED: IV NS 1000 ML 1,000 ML IV SCH (06:00)
[2021-03-21] MEDS ORDERED: ONDANSETRON 4 MG/2 ML VIAL IV PRN (06:00)
[2021-03-21] MEDS ORDERED: OXYCODONE/APAP 5-325 MG TABLET PO PRN (06:00)
[2021-03-21] MEDS ORDERED: ACETAMINOPHEN 325 MG TABLET PO PRN (06:00)
[2021-03-21] MEDS ORDERED: MORPHINE SULFATE 2 MG/1 ML DISP.SYRIN IV PRN (06:00)
[2021-03-21] MEDS ORDERED: hydrALAZINE HCL 20 MG/1 ML VIAL IV PRN (06:00)
[2021-03-21] MEDS ORDERED: ACYCLOVIR 400 MG TABLET PO ONE (06:15)
[2021-03-21] MEDS ORDERED: ACYCLOVIR 200 MG CAPSULE ONE (06:23)
[2021-03-21] MEDS ORDERED: MORPHINE SULFATE 2 MG/1 ML DISP.SYRIN ONE (06:54)
--- NOTE | 2021-03-21 06:59 | NUR ---
Patient does not wish to proceed with medical care recommended by Dr. Lemos and PRESALES ENGINEER Dennis Cooney. Patient given information related to possible complications, up to and including , which could occur as a result of leaving the hospital at this time. Patient verbalizes understanding of risks involved due to leaving against medical advice. Patient has signed AMA form. Steady gait. No SOB or labored breathing. Denies any SANON/dizziness.
[2021-03-21 07:09] VITALS: BP 110/65
[2021-03-21] MEDS ORDERED: ENOXAPARIN SODIUM 40 MG/0.4 ML DISP.SYRIN SQ SCH (09:00)
[2021-03-21] MEDS ORDERED: ASPIRIN 81 MG TAB.CHEW PO SCH (09:00)
[2021-03-21] MEDS ORDERED: HYDROXYUREA 500 MG CAPSULE PO SCH (09:00)
[2021-03-21] MEDS ORDERED: FOLIC ACID 1 MG TABLET PO SCH (09:00)
[2021-03-21] MEDS ORDERED: Medication Not On Formulary EA (Ascorbic Acid (Vitamin C) 500 MG) PO SCH (09:00)
== END 2021-03-21 07:10 | disposition left against medical advice (07) ==
LOC: ER 03:08
DX: D57.00 Hb-SS disease with crisis, unspecified (principal); B00.1 Herpesviral vesicular dermatitis; Z90.49 Acquired absence of other specified parts of digestive tract; Z90.81 Acquired absence of spleen; Z86.73 Personal history of transient ischemic attack (TIA), and cerebral infarction without residual deficits; Z88.0 Allergy status to penicillin; Z79.82 Long term (current) use of aspirin; Z79.899 Other long term (current) drug therapy; Z53.29 Procedure and treatment not carried out because of patient's decision for other reasons
CPT/HCPCS: 36415; 80048; 84702; 85025; 96361; 96374; 96375; 96376; 99284; J1170 ×2; J1200 ×2; A4663; J2270; J7030

== ENCOUNTER 2021-06-06 20:41 | Inpatient (IN) | payer SELFPAY ==
[~2021-06-06] VITALS: Ht 160 cm; Wt 99.9 kg
--- NOTE | 2021-06-06 22:43 | NUR ---
Patient arrived at the ER. Hx. sickle cell. Pt c/o swollen upper/lower extremities. 9/10 pain, started 3 days ago.
--- NOTE | 2021-06-06 23:01 | NUR ---
Dr. Diego on bedside for MSE.
[2021-06-06] MEDS ORDERED: diphenhydrAMINE 50 MG/1 ML VIAL IV ONE (23:15)
[2021-06-06] MEDS ORDERED: ONDANSETRON 4 MG/2 ML VIAL IV ONE (23:15)
[2021-06-06] MEDS ORDERED: HYDROMORPHONE 1 MG/1 ML DISP.SYRIN IV ONE (23:15)
[2021-06-07] MEDS ORDERED: diphenhydrAMINE 50 MG/1 ML VIAL ONE ×2 (00:06→02:03)
[2021-06-07] MEDS ORDERED: HYDROMORPHONE 1 MG/1 ML DISP.SYRIN ONE (00:06)
[2021-06-07] MEDS ORDERED: ONDANSETRON 4 MG/2 ML VIAL ONE (00:06)
[2021-06-07 01:23] LABS: HEMATOCRIT 33.8 % (31.2-41.9); MEAN CORPUSCULAR HEMOGLOBIN 21.9 uug (24.7-32.8); MEAN CORPUSCULAR VOLUME 68.1 fL (75.5-95.3); PLATELET COUNT (AUTO) 345 K/uL (179-408)
[2021-06-07] MEDS ORDERED: HYDROMORPHONE 2 MG/1 ML DISP.SYRIN ONE (01:52)
[2021-06-07] MEDS ORDERED: ENOXAPARIN SODIUM 100 MG/ML DISP.SYRIN SQ ONE (02:00)
[2021-06-07] MEDS ORDERED: IV NS 1000 ML 1,000 ML IV ONE ×2 (02:00→23:00)
[2021-06-07] MEDS ORDERED: diphenhydrAMINE 50 MG/1 ML VIAL IV ONE ×2 (02:00→04:30)
[2021-06-07] MEDS ORDERED: HYDROMORPHONE 1 MG/1 ML DISP.SYRIN IV ONE (02:00)
--- NOTE | 2021-06-07 02:02 | NUR ---
Called [facility] for panel call.
[2021-06-07 02:28] LABS: *BILIRUBIN,URIN NEGATIVE (NEGATIVE); *BLOOD, URINE 1+ (NEGATIVE); *CLARITY,URINE CLEAR (CLEAR); *COLOR,URINE YELLOW (YELLOW); *KETONES,URINE NEGATIVE (NEGATIVE); *UROBILINOGEN,URINE 0.2 E.U./dl (NORMAL); LEUKOCYTE ESTERASE ,URINE NEGATIVE (NEGATIVE); NITRITE, URINE NEGATIVE (NEGATIVE); UGLUCOSE NEGATIVE (NEGATIVE)
[2021-06-07] MEDS ORDERED: MAGNESIUM HYDROXIDE 30 ML LIQUID UDC PO PRN (02:30)
[2021-06-07] MEDS ORDERED: ACETAMINOPHEN 325 MG TABLET PO PRN (02:30)
[2021-06-07] MEDS ORDERED: ONDANSETRON 4 MG/2 ML VIAL IV PRN (02:30)
[2021-06-07] MEDS ORDERED: OXYCODONE/APAP 5-325 MG TABLET PO PRN ×2 (02:30→04:30)
[2021-06-07] MEDS ORDERED: REMEDY ESSENTIAL ZINC PASTE 113 GM TP PRN (02:30)
[2021-06-07 02:40] LABS: BACTERIA,URINE FEW /HPF (NONE SEEN); SQUAMOUS EPITHELIAL CELL,UR FEW /HPF (NONE SEEN); WBC,URINE 0-3 /HPF (0-3)
--- NOTE | 2021-06-07 03:00 | NUR ---
Informed Dr Diego, still unable to find any veins for blood draw. No new order given.
--- NOTE | 2021-06-07 03:05 | NUR ---
Report given to MS unit NEPTALI Taylor.
[2021-06-07 03:47] LABS: *URINE HCG, QUAL NEGATIVE (NEGATIVE)
--- NOTE | 2021-06-07 04:15 | NUR ---
Pt. admitted to [facility] unit room 317, under care of Romy Yoder Belongs List completed.
--- NOTE | 2021-06-07 04:20 | NUR ---
Received pt from er via wheelchair. Under the care of Anita Oropeza Np. Dx: DVT. Belonging list done. MCFP assessment done.Pt in no acute distress. 2 IV intact. Safety and comfort provided. Will continue to monitor.
--- NOTE | 2021-06-07 04:28 | NUR ---
notify Dr physician surgeon regarding pt requesting for Dilaudid 2mg and Benadryl Iv 25mg because as per pt her home medication is ineffective that's why she came here for IV medication.Anita Oropeza MANGLE ROLL OPERATOR ordered one time for Dilaudid 2mg IV and Benadryl IV 25mg.
[2021-06-07] MEDS ORDERED: OXYCODONE HCL 5 MG TABLET PO PRN (04:30)
[2021-06-07] MEDS ORDERED: HYDROMORPHONE 2 MG/1 ML DISP.SYRIN IV ONE ×2 (04:30→13:45)
[2021-06-07] MEDS ORDERED: OXYCODONE/APAP 5-325 MG TABLET PO SCH (04:30)
[2021-06-07] MEDS ORDERED: OXYCODONE HCL 5 MG TABLET PO SCH (04:30)
--- NOTE | 2021-06-07 06:12 | NUR ---
Pt in no acute distress.At 0502H Benadryl 25mg and Dilaudid 2mg given to pt one time as per DR. macias. Pt tolerated it well. Iv intact.Vital signs wnl. Safety and comfort provided.All needs are met. Will endorse to incoming nurse for continuity of care.
[2021-06-07 06:41] LABS: CREATININE 0.9 mg/dL (0.6-1.3); POTASSIUM 3.5 mmol/L (3.5-5.1)
[2021-06-07 06:47] LABS: BILIRUBIN,DIRECT 0.1 mg/dL (0.0-0.2); BILIRUBIN,TOTAL 0.3 mg/dL (0.2-1.0); TOTAL PROTEIN, SERUM 6.9 g/dL (6.4-8.2)
[2021-06-07] MEDS ORDERED: diphenhydrAMINE 50 MG CAPSULE PO PRN (08:15)
[2021-06-07] MEDS ORDERED: IV NORMAL SALINE 250 ML IV ONE (08:23)
[2021-06-07] MEDS ORDERED: IOHEXOL 350 100 ML INFUS..BTL ONE (08:23)
[2021-06-07] MEDS ORDERED: SWABABLE VALVE TRANSFER SET EA MC ONE (08:23)
[2021-06-07] MEDS: HYDROXYUREA 500 MG CAPSULE PO SCH ×2 (09:00→16:43)
[2021-06-07] MEDS: FOLIC ACID 1 MG TABLET PO SCH (09:02)
[2021-06-07] MEDS: ASPIRIN 81 MG TAB.CHEW PO SCH (09:02)
[2021-06-07] MEDS: ASCORBIC ACID 500 MG TABLET PO SCH (09:04)
[2021-06-07] MEDS: ENOXAPARIN SODIUM 100 MG/ML DISP.SYRIN SQ SCH ×2 (09:05→21:29)
--- NOTE | 2021-06-07 09:28 | NUR ---
Pt states that percocet does not help with her pain, refused to take PRN dose. has been notified. Left message with Dr. Sanchez Acuña's office for consultation of pain management due to sickle cell disease. Midline has been ordered for patient due to being a hard stick, pt signed consent for CTA but stated that she gets itchy from contrast and will need benadryl prior to getting CTA.
[2021-06-07] MEDS ORDERED: MORPHINE SULFATE 2 MG/1 ML DISP.SYRIN IV ONE (10:15)
[2021-06-07 11:12] VITALS: BP 99/61
--- NOTE | 2021-06-07 11:34 | NUR ---
Pt refused to get CTA done unless she received benadryl, pulled out prn PO benadryl as it was ordered for patient but she refused to take the PO dose. Pt insisted that she gets IV benadryl because "it will not kick in until an hour later". I told pt that I can ask the radiologist to return at a later time after she takes the PO benadryl to allow time of action. Pt stated that she is going to get into anaphylactic shock if she is not given IV benadryl. has been notified. There is no indication for medication needing to be administered through IV. I explained it is the same dosage and same efficacy. I explained the time frame it takes for benadryl to work. Pt continued to refuse.
[2021-06-07] MEDS: OXYCODONE/APAP 5-325 MG TABLET PO SCH ×3 (12:00→21:28)
--- NOTE | 2021-06-07 13:38 | NUR ---
nursing home physician spoke with pt. Pt agreed to take PO benadryl to go to CTA. One time dose of dilaudid 2 mg IV ordered per MD direction. Pt refused scheduled dose of percocet at 1200. Administered benadryl PO, notified radiology to come after 30 minutes for medication to take effect. Pt is compliant and agreeable at this time.
[2021-06-07 15:14] VITALS: BP 121/82
--- NOTE | 2021-06-07 18:42 | NUR ---
Pt continues to complain of pain but was asleep when rounded to the room. Pain management MD has not come in for consultation yet, called once in the morning as well as notified primary MD to contact. Called Dr. Bradford's number again at 1800 but no answer at the office, left message with room number and hospital number. Notified pt that doctor has been reached out to. Comfort measures provided. CTA was negative for pulmonary embolism.
--- NOTE | 2021-06-07 20:01 | NUR ---
pt verbalized frustration with her care; reassurance given; supervisor plastering Radha informed and will speak to her shortly.
[2021-06-07 20:30] VITALS: BP 118/82
--- NOTE | 2021-06-07 21:05 | NUR ---
Received report, pt resting in bed. AOx4. On RA saturating at 98%. Vital signs WNL. No signs of acute distress. Pt complaining that Percocet PO medication is not helping with pain management. aware. MD Bradford contacted and referred for pain management. Will continue to provide reassurance about care. Call lights within reach. Safety measures initiated.
--- NOTE | 2021-06-07 23:00 | NUR ---
Pt verbalizes she is going through sickle cell crisis. Pt is requesting for IV fluids. MD Leiva aware, per MD give NS @ 75 mls/hr ONE TIME.
[2021-06-08] MEDS: OXYCODONE/APAP 5-325 MG TABLET PO SCH ×4 (02:15→14:08)
[2021-06-08 06:11] LABS: HEMATOCRIT 31.1 % (31.2-41.9); MEAN CORPUSCULAR HEMOGLOBIN 21.9 uug (24.7-32.8); MEAN CORPUSCULAR VOLUME 68.2 fL (75.5-95.3); PLATELET COUNT (AUTO) 303 K/uL (179-408)
[2021-06-08 06:23] LABS: MAGNESIUM 1.8 mg/dL (1.8-2.4); PHOSPHOROUS 3.6 mg/dL (2.5-4.9); POTASSIUM 3.9 mmol/L (3.5-5.1)
[2021-06-08] MEDS: ASCORBIC ACID 500 MG TABLET PO SCH (08:17)
[2021-06-08] MEDS: FOLIC ACID 1 MG TABLET PO SCH (08:17)
[2021-06-08] MEDS: ASPIRIN 81 MG TAB.CHEW PO SCH (08:17)
[2021-06-08] MEDS: HYDROXYUREA 500 MG CAPSULE PO SCH (08:27)
[2021-06-08] MEDS ORDERED: DABIGATRAN ETEXILATE MESYLATE 150 MG CAPSULE PO SCH (09:00)
[2021-06-08 11:15] VITALS: BP 111/54
[2021-06-08] MEDS ORDERED: OXYC1TAB12 PO (14:03)
--- NOTE | 2021-06-08 14:42 | NUR ---
WENT AMA. PRADAXA 150MG PO BID [id number] CALLED IN TO PHARMACY OF HER CHOICE. [facility] [place]. [phone]. MIDLINE REMOVED IN TACT
[2021-06-08] MEDS ORDERED: OXYCODONE/APAP 5-325 MG TABLET PO SCH (16:00)
[2021-06-08] MEDS ORDERED: DABI150C PO (16:23)
== END 2021-06-08 15:00 | disposition home or self-care (01) | DRG 299 ==
LOC: ER 20:42 → MEDSURG3 06-07 03:55
PROVIDERS: ADMIT Family Medicine; ATTEND Family Medicine
PROC: 05H533Z Insertion of Infusion Device into Right Subclavian Vein, Percutaneous Approach (ICD-10-PCS; principal; 2021-06-07)
PROC: B546ZZA Ultrasonography of Right Subclavian Vein, Guidance (ICD-10-PCS; 2021-06-07)
DX: I82.411 Acute embolism and thrombosis of right femoral vein (principal); D57.00 Hb-SS disease with crisis, unspecified; E44.1 Mild protein-calorie malnutrition; I82.431 Acute embolism and thrombosis of right popliteal vein; E66.01 Morbid (severe) obesity due to excess calories; Z68.39 Body mass index [BMI] 39.0-39.9, adult; Z86.711 Personal history of pulmonary embolism; E88.09 Other disorders of plasma-protein metabolism, not elsewhere classified; Z90.81 Acquired absence of spleen; G89.29 Other chronic pain; Z86.73 Personal history of transient ischemic attack (TIA), and cerebral infarction without residual deficits; Z83.3 Family history of diabetes mellitus; Z20.822 Contact with and (suspected) exposure to COVID-19
CPT/HCPCS: 36415; 71275; 83735; 84100; 84703; 85025; 85610; 85651; 85730; A4663; G0378; J1170; J1200; J1650; J2270; J2405; J7040; Q0163; Q9967

== ENCOUNTER 2021-08-12 22:54 | Emergency (ER) | payer SELFPAY ==
[~2021-08-12] VITALS: Ht 160 cm; Wt 104.3 kg
[~2021-08-12 22:54] MED LIST changes: +DABI150C PO; -DIPH50CA37 GT; -OXYC-128 PO; -OXYC-133 PO; +OXYC1TAB12 PO
--- NOTE | 2021-08-12 23:56 | NUR ---
pt ambulated to room 4a states has pain secondary to sickle cell crisis.
--- NOTE | 2021-08-12 23:58 | NUR ---
pt has a midline iv access to her right upper arm. pt requested to have it flushed. site was flushed no resistance noted. midline does not draw back blood.
[2021-08-13] MEDS ORDERED: IV NS 1000 ML 1,000 ML IV ONE ×2
[2021-08-13] MEDS ORDERED: diphenhydrAMINE 50 MG/1 ML VIAL ONE ×2 (00:07→01:25)
[2021-08-13] MEDS ORDERED: HYDROMORPHONE 2 MG/1 ML DISP.SYRIN ONE ×2 (00:07→01:26)
--- NOTE | 2021-08-13 00:25 | NUR ---
catapress was not given.
[2021-08-13] MEDS ORDERED: CLONIDINE HCL 0.2 MG TABLET PO ONE (00:30)
[2021-08-13] MEDS ORDERED: HYDROMORPHONE 1 MG/1 ML DISP.SYRIN IV ONE ×3 (01:30→02:30)
[2021-08-13] MEDS ORDERED: diphenhydrAMINE 50 MG/1 ML VIAL IV ONE ×2 (01:30)
--- NOTE | 2021-08-13 02:10 | NUR ---
Dr. Ardon at bedside speaking with the pt.
[2021-08-13] MEDS ORDERED: OXYC-128 PO (02:22)
[2021-08-13] MEDS ORDERED: HYDROMORPHONE 1 MG/1 ML DISP.SYRIN ONE (02:41)
--- NOTE | 2021-08-13 03:01 | NUR ---
midline dressing changed performed to right upper arm midline.
[2021-08-13] MEDS ORDERED: OXYCODONE/APAP 5-325 MG TABLET ONE (03:40)
[2021-08-13 03:43] VITALS: BP 148/70
[2021-08-13] MEDS ORDERED: OXYCODONE/APAP 5-325 MG TABLET PO ONE (03:45)
== END 2021-08-13 03:49 | disposition home or self-care (01) ==
LOC: ER 23:00
DX: D57.00 Hb-SS disease with crisis, unspecified (principal); Z90.49 Acquired absence of other specified parts of digestive tract; Z90.81 Acquired absence of spleen; Z86.73 Personal history of transient ischemic attack (TIA), and cerebral infarction without residual deficits; Z86.711 Personal history of pulmonary embolism; Z79.02 Long term (current) use of antithrombotics/antiplatelets; Z79.82 Long term (current) use of aspirin; Z79.899 Other long term (current) drug therapy
CPT/HCPCS: 96361; 96374; 96375; 96376; 99284; J1170 ×3; J1200 ×2; J7040; A4663

== ENCOUNTER 2021-08-30 16:12 | Emergency (ER) | payer SELFPAY ==
[~2021-08-30] VITALS: Ht 160 cm; Wt 104.3 kg
[~2021-08-30 16:12] MED LIST changes: +OXYC-128 PO
--- NOTE | 2021-08-30 17:02 | NUR ---
Dr Yeh at the bedside for MSE.
[2021-08-30] MEDS ORDERED: HYDROMORPHONE 1 MG/1 ML DISP.SYRIN IV ONE ×3 (17:15→19:00)
[2021-08-30] MEDS ORDERED: diphenhydrAMINE 50 MG/1 ML VIAL IV ONE ×2 (17:15→18:30)
[2021-08-30] MEDS ORDERED: IV NORMAL SALINE 1000 ML BAG IV ONE (17:15)
[2021-08-30] MEDS ORDERED: HYDROMORPHONE 2 MG/1 ML DISP.SYRIN ONE (17:40)
[2021-08-30] MEDS ORDERED: diphenhydrAMINE 50 MG/1 ML VIAL ONE ×2 (17:40→18:27)
[2021-08-30 17:54] LABS: CREATININE 0.9 mg/dL (0.6-1.3); POTASSIUM 3.1 mmol/L (3.5-5.1)
[2021-08-30 18:14] LABS: HEMATOCRIT 31.1 % (31.2-41.9); MEAN CORPUSCULAR VOLUME 74.5 fL (75.5-95.3); PLATELET COUNT (AUTO) 284 K/uL (179-408)
[2021-08-30] MEDS ORDERED: POTASSIUM CHLORIDE 20 MEQ TAB.PRT.SR PO ONE (18:15)
[2021-08-30] MEDS ORDERED: ONDA4TAB11 PO (18:19)
[2021-08-30] MEDS ORDERED: OXYC-128 PO (18:19)
[2021-08-30] MEDS ORDERED: POTASSIUM CHLORIDE 20 MEQ TAB.PRT.SR ONE (18:21)
[2021-08-30] MEDS ORDERED: HYDROMORPHONE 1 MG/1 ML DISP.SYRIN ONE ×2 (18:21→18:56)
[2021-08-30 19:14] LABS: EOSINOPHILS % (MANUAL) 1 % (0-8); LYMPHOCYTES % (MANUAL) 30 % (20-40); MONOCYTES % (MANUAL) 9 % (2-10); NEUTROPHILS % (MANUAL) 60 % (42-75)
[2021-08-30 19:23] VITALS: BP 126/81
--- NOTE | 2021-08-30 19:24 | NUR ---
Patient discharged to home in stable condition. Written and verbal after care instructions given. Patient verbalizes understanding of instructions. Instructed not to drive. Stressed follow up or return to ER for worsening s/s.
== END 2021-08-30 19:26 | disposition home or self-care (01) ==
LOC: ER 16:16
DX: D57.00 Hb-SS disease with crisis, unspecified (principal); E87.6 Hypokalemia; Z90.49 Acquired absence of other specified parts of digestive tract; Z90.81 Acquired absence of spleen; Z86.711 Personal history of pulmonary embolism; Z86.73 Personal history of transient ischemic attack (TIA), and cerebral infarction without residual deficits; Z79.02 Long term (current) use of antithrombotics/antiplatelets; Z79.899 Other long term (current) drug therapy
CPT/HCPCS: 99284; 96374; 96361; 96375; 80048; 85025; 84702; 36415; 96376; 85007; J1200 ×2; J1170 ×3; J7040 ×2; 70030-TC; A4663

== ENCOUNTER 2021-09-03 17:36 | Emergency (ER) | payer OTHER ==
[~2021-09-03] VITALS: Ht 160 cm; Wt 99.8 kg
[~2021-09-03 17:36] MED LIST changes: +ONDA4TAB11 PO
--- NOTE | 2021-09-03 20:15 | NUR ---
Patient is a/ox4, NAD noted. Patient is able to walk to the restroom with steady gait.
[2021-09-03] MEDS ORDERED: HYDROMORPHONE 1 MG/1 ML DISP.SYRIN IV ONE (21:45)
[2021-09-03] MEDS ORDERED: PROCHLORPERAZINE EDISYLATE 10 MG/2 ML VIAL IV ONE (21:45)
[2021-09-03] MEDS ORDERED: IV NS 1000 ML 1,000 ML IV ONE ×2 (21:45)
[2021-09-03] MEDS ORDERED: PROCHLORPERAZINE EDISYLATE 10 MG/2 ML VIAL ONE (21:53)
[2021-09-03] MEDS ORDERED: HYDROMORPHONE 1 MG/1 ML DISP.SYRIN ONE (21:54)
[2021-09-03] MEDS ORDERED: HYDROMORPHONE 2 MG/1 ML DISP.SYRIN ONE ×2 (21:54→23:52)
[2021-09-03 22:08] LABS: *BILIRUBIN,URIN NEGATIVE (NEGATIVE); *COLOR,URINE YELLOW (YELLOW); *KETONES,URINE NEGATIVE (NEGATIVE); *UROBILINOGEN,URINE 0.2 E.U./dl (NORMAL); LEUKOCYTE ESTERASE ,URINE NEGATIVE (NEGATIVE); NITRITE, URINE NEGATIVE (NEGATIVE); UGLUCOSE NEGATIVE (NEGATIVE)
[2021-09-03 22:09] LABS: *BLOOD, URINE TRACE (NEGATIVE); *CLARITY,URINE HAZY (CLEAR)
[2021-09-03 22:17] LABS: BACTERIA,URINE NONE SEEN /HPF (NONE SEEN); SQUAMOUS EPITHELIAL CELL,UR MODERATE /HPF (NONE SEEN); WBC,URINE NONE SEEN /HPF (0-3)
[2021-09-03] MEDS ORDERED: diphenhydrAMINE 50 MG/1 ML VIAL ONE ×2 (22:21→23:58)
[2021-09-03] MEDS ORDERED: diphenhydrAMINE 50 MG/1 ML VIAL IV ONE (22:30)
[2021-09-04 00:25] LABS: HEMATOCRIT 32.4 % (31.2-41.9); PLATELET COUNT (AUTO) 314 K/uL (179-408)
[2021-09-04 00:32] LABS: CREATININE 1.1 mg/dL (0.6-1.3); POTASSIUM 3.6 mmol/L (3.5-5.1)
[2021-09-04] MEDS ORDERED: OXYC-133 PO (01:24)
[2021-09-04] MEDS ORDERED: METR500T PO (01:25)
[2021-09-04] MEDS ORDERED: HYDROMORPHONE 1 MG/1 ML DISP.SYRIN IV ONE ×2 (02:00)
[2021-09-04] MEDS ORDERED: diphenhydrAMINE 50 MG/1 ML VIAL IV ONE ×2 (02:00)
[2021-09-04] MEDS ORDERED: diphenhydrAMINE 50 MG/1 ML VIAL ONE (02:05)
[2021-09-04] MEDS ORDERED: HYDROMORPHONE 2 MG/1 ML DISP.SYRIN ONE (02:05)
--- NOTE | 2021-09-04 02:40 | NUR ---
Patient discharged to home in stable condition. Written and verbal after care instructions given. Patient verbalizes understanding of instructions. Stressed follow up or return to ER for worsening s/s. Patient is a/ox4, NAD noted, patient is able to walk with steady gait
--- NOTE | 2021-09-04 02:45 | NUR ---
called house servant for taxi voucher
[2021-09-04 03:22] VITALS: BP 125/74
== END 2021-09-04 02:45 | disposition home or self-care (01) ==
LOC: ER 22:47
DX: D57.819 Other sickle-cell disorders with crisis, unspecified (principal); R10.13 Epigastric pain; N76.0 Acute vaginitis; Z90.81 Acquired absence of spleen; Z90.49 Acquired absence of other specified parts of digestive tract; Z86.73 Personal history of transient ischemic attack (TIA), and cerebral infarction without residual deficits; Z86.711 Personal history of pulmonary embolism; Z79.82 Long term (current) use of aspirin
CPT/HCPCS: 99285; 96374; 96361 ×2; 96375; 81001; 36415; 96376 ×2; 80048; 85025; J1200 ×3; J0780; J1170 ×4; J7040

== ENCOUNTER 2021-09-19 19:29 | Emergency (ER) | payer OTHER ==
[~2021-09-19] VITALS: Ht 157.5 cm; Wt 99.8 kg
[~2021-09-19 19:29] MED LIST changes: +METR500T PO; +OXYC-133 PO
--- NOTE | 2021-09-19 19:53 | NUR ---
pt in room 5 c/o chest pain and sickel cell. ekg performed.
[2021-09-19] MEDS ORDERED: diphenhydrAMINE 50 MG/1 ML VIAL IV ONE ×2 (20:15→23:30)
[2021-09-19] MEDS ORDERED: IV NS 1000 ML 1,000 ML IV ONE ×2 (20:15→23:30)
[2021-09-19] MEDS ORDERED: HYDROMORPHONE 1 MG/1 ML DISP.SYRIN IV ONE ×2 (20:15→23:30)
--- NOTE | 2021-09-19 21:09 | NUR ---
pt is a difficult iv start, Edinson mcclellanhousehold appliances service technician is attempting iv.
--- NOTE | 2021-09-19 21:41 | NUR ---
after multiple iv attempts Tao GUNDERSON was able to place a 24 g iv to pt's right foot.
[2021-09-19] MEDS ORDERED: diphenhydrAMINE 50 MG/1 ML VIAL ONE ×2 (21:42→23:25)
[2021-09-19] MEDS ORDERED: HYDROMORPHONE 2 MG/1 ML DISP.SYRIN ONE ×3 (21:43→23:25)
[2021-09-19] MEDS ORDERED: HYDROMORPHONE 1 MG/1 ML DISP.SYRIN ONE ×2 (21:43→23:25)
[2021-09-20] MEDS ORDERED: HYDROMORPHONE 1 MG/1 ML DISP.SYRIN IV ONE (01:30)
[2021-09-20] MEDS ORDERED: HYDROMORPHONE 2 MG/1 ML DISP.SYRIN ONE (01:39)
[2021-09-20] MEDS ORDERED: diphenhydrAMINE 50 MG/1 ML VIAL ONE (01:44)
[2021-09-20] MEDS ORDERED: diphenhydrAMINE 50 MG/1 ML VIAL IV STA (01:52)
[2021-09-20 02:08] VITALS: BP 136/80
== END 2021-09-20 02:09 | disposition home or self-care (01) ==
LOC: ER 19:32
DX: D57.00 Hb-SS disease with crisis, unspecified (principal); Z90.81 Acquired absence of spleen; Z90.49 Acquired absence of other specified parts of digestive tract; Z88.1 Allergy status to other antibiotic agents; Z88.0 Allergy status to penicillin; Z86.711 Personal history of pulmonary embolism; Z79.02 Long term (current) use of antithrombotics/antiplatelets; Z86.73 Personal history of transient ischemic attack (TIA), and cerebral infarction without residual deficits
CPT/HCPCS: 99285; 96374; 96361; 96375; 93005; 96376 ×2; J1200 ×3; J1170 ×5; J7040 ×2; A4663

== ENCOUNTER 2021-09-29 11:59 | Emergency (ER) | payer OTHER ==
[~2021-09-29] VITALS: Ht 160 cm; Wt 104.3 kg
[2021-09-29] MEDS ORDERED: IV NORMAL SALINE 500 ML BAG IV ONE (15:00)
[2021-09-29] MEDS ORDERED: ONDANSETRON 4 MG/2 ML VIAL IV ONE (15:00)
[2021-09-29] MEDS ORDERED: HYDROMORPHONE 1 MG/1 ML DISP.SYRIN IV ONE ×4 (15:00→19:30)
[2021-09-29] MEDS ORDERED: ACETAMINOPHEN 325 MG TABLET PO ONE (15:15)
[2021-09-29] MEDS ORDERED: HYDROMORPHONE 2 MG/1 ML DISP.SYRIN ONE ×2 (15:51→19:36)
[2021-09-29] MEDS ORDERED: ACETAMINOPHEN 325 MG TABLET ONE ×2 (15:51→15:57)
[2021-09-29] MEDS ORDERED: ONDANSETRON 4 MG/2 ML VIAL ONE (15:51)
[2021-09-29 15:53] LABS: CREATININE 0.9 mg/dL (0.6-1.3); POTASSIUM 3.4 mmol/L (3.5-5.1)
[2021-09-29] MEDS ORDERED: HYDROMORPHONE 1 MG/1 ML DISP.SYRIN ONE ×4 (15:58→19:36)
[2021-09-29] MEDS ORDERED: diphenhydrAMINE 25 MG CAP PO ONE (16:00)
[2021-09-29 16:02] LABS: HEMATOCRIT 34.7 % (31.2-41.9); MEAN CORPUSCULAR HEMOGLOBIN 23.5 uug (24.7-32.8); MEAN CORPUSCULAR VOLUME 73.9 fL (75.5-95.3); PLATELET COUNT (AUTO) 371 K/uL (179-408)
[2021-09-29] MEDS ORDERED: POTASSIUM CHLORIDE 20 MEQ TAB.PRT.SR PO ONE (16:45)
[2021-09-29 17:01] LABS: EOSINOPHILS % (MANUAL) 1 % (0-8); LYMPHOCYTES % (MANUAL) 32 % (20-40); MONOCYTES % (MANUAL) 9 % (2-10); NEUTROPHILS % (MANUAL) 58 % (42-75)
[2021-09-29] MEDS ORDERED: diphenhydrAMINE 50 MG/1 ML VIAL ONE ×3 (17:09→19:36)
[2021-09-29] MEDS ORDERED: POTASSIUM CHLORIDE 20 MEQ TAB.PRT.SR ONE ×2 (17:10→18:23)
[2021-09-29] MEDS ORDERED: diphenhydrAMINE 50 MG/1 ML VIAL IV ONE ×3 (18:00→19:30)
[2021-09-29] MEDS ORDERED: POTA-194 PO (18:21)
[2021-09-29] MEDS ORDERED: OXYC-128 PO (20:33)
== END 2021-09-30 04:35 | disposition home or self-care (01) ==
LOC: ER 12:02
DX: D57.00 Hb-SS disease with crisis, unspecified (principal); E87.6 Hypokalemia; Z86.73 Personal history of transient ischemic attack (TIA), and cerebral infarction without residual deficits; Z86.711 Personal history of pulmonary embolism; Z79.02 Long term (current) use of antithrombotics/antiplatelets; Z90.81 Acquired absence of spleen; Z90.49 Acquired absence of other specified parts of digestive tract; Z88.1 Allergy status to other antibiotic agents; Z88.0 Allergy status to penicillin
CPT/HCPCS: 99284; 96374; 96375; 80048; 85025; 85044; 36415; 96376; 85007; J1200 ×2; J2405; J1170 ×5; 70030-TC; A4663

== ENCOUNTER 2021-10-11 13:08 | Inpatient (IN) | payer OTHER ==
[~2021-10-11] VITALS: Ht 160 cm; Wt 107.5 kg
[~2021-10-11 13:08] MED LIST changes: +POTA-194 PO
--- NOTE | 2021-10-11 13:58 | NUR ---
DR George at the bedside for MSE.
[2021-10-11] MEDS ORDERED: IV NORMAL SALINE 1000 ML BAG IV ONE ×2 (14:15→17:45)
[2021-10-11] MEDS ORDERED: HYDROMORPHONE 1 MG/1 ML DISP.SYRIN IV ONE ×3 (14:15→18:15)
[2021-10-11] MEDS ORDERED: diphenhydrAMINE 25 MG CAP PO ONE ×4 (14:15→16:15)
[2021-10-11] MEDS ORDERED: ONDANSETRON 4 MG/2 ML VIAL IV ONE ×2 (14:15→16:15)
[2021-10-11] MEDS ORDERED: ONDANSETRON 4 MG/2 ML VIAL ONE ×2 (14:30→16:13)
[2021-10-11] MEDS ORDERED: HYDROMORPHONE 2 MG/1 ML DISP.SYRIN ONE ×3 (14:31→18:04)
[2021-10-11 14:38] LABS: MEAN CORPUSCULAR HEMOGLOBIN 23.5 uug (24.7-32.8); MEAN CORPUSCULAR VOLUME 75.5 fL (75.5-95.3); PLATELET COUNT (AUTO) 372 K/uL (179-408)
--- NOTE | 2021-10-11 14:52 | NUR ---
PT 1st refused to take Bendryl in PO form, but now she agreed and took the PO. Pt states she is not allergic to Dilaudid and she had it many times, but when Dilaudid given, she complained of itching at the site and RUE, and subsequently requesting IV Bendryl.
[2021-10-11 15:12] LABS: CREATININE 1.2 mg/dL (0.6-1.3); POTASSIUM 3.6 mmol/L (3.5-5.1)
[2021-10-11] MEDS ORDERED: diphenhydrAMINE 50 MG/1 ML VIAL ONE (16:28)
[2021-10-11] MEDS ORDERED: diphenhydrAMINE 50 MG/1 ML VIAL IV ONE (16:30)
--- NOTE | 2021-10-11 17:00 | NUR ---
Patient is resting comfortably in bed with eyes closed, NAD noted.
[2021-10-11 17:55] LABS: *BILIRUBIN,URIN NEGATIVE (NEGATIVE); *CLARITY,URINE CLEAR (CLEAR); *COLOR,URINE YELLOW (YELLOW); *KETONES,URINE NEGATIVE (NEGATIVE); *UROBILINOGEN,URINE 0.2 E.U./dl (NORMAL); LEUKOCYTE ESTERASE ,URINE NEGATIVE (NEGATIVE); NITRITE, URINE NEGATIVE (NEGATIVE); UGLUCOSE NEGATIVE (NEGATIVE)
[2021-10-11 17:58] LABS: *BLOOD, URINE TRACE (NEGATIVE); *URINE HCG, QUAL NEG (NEGATIVE)
--- NOTE | 2021-10-11 19:36 | NUR ---
Patient is a/ox4, able to walk to the restroom with steady gait.
[2021-10-11] MEDS ORDERED: HYDROMORPHONE 1 MG/1 ML DISP.SYRIN IV PRN (20:00)
[2021-10-11] MEDS ORDERED: ACETAMINOPHEN 325 MG TABLET PO PRN (20:00)
[2021-10-11] MEDS ORDERED: ONDANSETRON 4 MG/2 ML VIAL IV PRN (20:00)
[2021-10-11 20:01] LABS: BACTERIA,URINE FEW /HPF (NONE SEEN); SQUAMOUS EPITHELIAL CELL,UR MODERATE /HPF (NONE SEEN)
--- NOTE | 2021-10-11 20:22 | NUR ---
Pt. admitted to room 314 , under care of Dr. Davis Belongs List completed Hayley RN aware of patient's arrival
[2021-10-11] MEDS ORDERED: FOLIC ACID 1 MG in IV DEXTROSE 5% 50 ML IV SCH (21:00)
[2021-10-11] MEDS: DABIGATRAN ETEXILATE MESYLATE 75 MG CAPSULE PO SCH (21:19)
[2021-10-11] MEDS: diphenhydrAMINE 50 MG/1 ML VIAL IV PRN (21:20)
[2021-10-11] MEDS: IV NS 1000 ML 1,000 ML IV PRN (21:21)
[2021-10-11] MEDS: HYDROMORPHONE 2 MG/1 ML DISP.SYRIN IV PRN (21:21)
[2021-10-11 22:00] VITALS: BP 102/57
[2021-10-12 00:10] VITALS: BP 106/60
[2021-10-12] MEDS: HYDROMORPHONE 2 MG/1 ML DISP.SYRIN IV PRN ×7 (01:22→21:40)
[2021-10-12 04:00] VITALS: BP 118/75
[2021-10-12] MEDS: diphenhydrAMINE 50 MG/1 ML VIAL IV PRN ×3 (05:24→18:41)
--- NOTE | 2021-10-12 05:31 | NUR ---
Admitted to Tele, SR on monitor. No distress noted throughout the night. Denies SOB or chest pain. Pt able to ambulate. Midline nurse inserted midline on CHETAN, running ordered fluids. Pain meds provided PRN. Safety maintained throughout the night, will endorse to day shift.
[2021-10-12] MEDS: DABIGATRAN ETEXILATE MESYLATE 75 MG CAPSULE PO SCH ×2 (08:22→21:00)
[2021-10-12 09:03] LABS: HEMATOCRIT 30.8 % (31.2-41.9); MEAN CORPUSCULAR VOLUME 75.2 fL (75.5-95.3); PLATELET COUNT (AUTO) 316 K/uL (179-408)
[2021-10-12 09:16] LABS: ALANINE AMINOTRANSFERASE 12 U/L (14-59); ALKALINE PHOSPHATASE 72 U/L (50-136); ASPARTATE AMINOTRANSFERASE < 5 U/L (15-37); BILIRUBIN,TOTAL 0.2 mg/dL (0.2-1.0); CARBON DIOXIDE 27 mmol/L (21-32); CHLORIDE 107 mmol/L (98-107); CREATININE 1.1 mg/dL (0.6-1.3); GLUCOSE 82 mg/dL (74-106); MAGNESIUM 1.7 mg/dL (1.8-2.4); PHOSPHOROUS 3.4 mg/dL (2.5-4.9); POTASSIUM 3.8 mmol/L (3.5-5.1); TOTAL PROTEIN, SERUM 6.8 g/dL (6.4-8.2); UREA NITROGEN, BLOOD 7 mg/dL (7-18)
[2021-10-12 12:03] VITALS: BP 139/86
[2021-10-12] MEDS: FOLIC ACID 1 MG TABLET PO SCH (12:17)
[2021-10-12 15:50] VITALS: BP 104/67
[2021-10-12] MEDS: IV NS 1000 ML 1,000 ML IV PRN (18:59)
[2021-10-12 20:00] VITALS: BP 111/72
--- NOTE | 2021-10-12 22:25 | NUR ---
Patient alert oriented, no sob no chest pain, tele monitor sinus rhythm, cont on pain management gen body pain, refused pradaxa meds, cont to monitor.
[2021-10-13] VITALS: BP 115/77
[2021-10-13] MEDS: HYDROMORPHONE 2 MG/1 ML DISP.SYRIN IV PRN ×8 (00:37→23:51)
[2021-10-13] MEDS: diphenhydrAMINE 50 MG/1 ML VIAL IV PRN ×4 (00:38→21:01)
[2021-10-13 04:00] VITALS: BP 135/52
--- NOTE | 2021-10-13 07:53 | NUR ---
cont pain management, patient ambulate in natarajan ways, up most of the night, med seeking behavior, cont to monitor, sinus rhythm.
--- NOTE | 2021-10-13 08:00 | NUR ---
Dozing off, easily aroused. IVF infusing well.
[2021-10-13] MEDS: FOLIC ACID 1 MG TABLET PO SCH (08:55)
[2021-10-13] MEDS: IV NS 1000 ML 1,000 ML IV PRN (08:56)
[2021-10-13] MEDS: DABIGATRAN ETEXILATE MESYLATE 75 MG CAPSULE PO SCH ×2 (08:56→23:07)
[2021-10-13] MEDS: HYDROXYUREA 500 MG CAPSULE PO SCH ×2 (11:24→17:09)
[2021-10-13 11:50] VITALS: BP 110/68
--- NOTE | 2021-10-13 13:45 | NUR ---
Reports of itchiness. Benadryl given as ordered with pain medication.
--- NOTE | 2021-10-13 16:21 | NUR ---
Nauseated, Zofran IV given with relief
--- NOTE | 2021-10-13 18:23 | NUR ---
With intermittent back pain, medicated with Dilaudid 2 mg IV Q 3H prn
[2021-10-13 20:12] VITALS: BP 126/84
[2021-10-14] VITALS: BP 120/75
[2021-10-14] MEDS: HYDROMORPHONE 2 MG/1 ML DISP.SYRIN IV PRN ×3 (02:59→09:28)
[2021-10-14] MEDS: diphenhydrAMINE 50 MG/1 ML VIAL IV PRN ×2 (03:05→09:27)
[2021-10-14 04:00] VITALS: BP 127/83
[2021-10-14] MEDS: DABIGATRAN ETEXILATE MESYLATE 75 MG CAPSULE PO SCH (08:51)
[2021-10-14] MEDS: HYDROXYUREA 500 MG CAPSULE PO SCH (08:51)
[2021-10-14] MEDS: FOLIC ACID 1 MG TABLET PO SCH (08:52)
--- NOTE | 2021-10-14 10:00 | NUR ---
PREPARED FOR DISCHARGE. SEEN BY DR. VERDUGO. PRESCRIPTION GIVEN TO PATIENT.
--- NOTE | 2021-10-14 10:45 | NUR ---
DISCHARGED AMBULATORY ACCOMPANIED BY NURSE. NO C/O DISCOMFORT.
== END 2021-10-14 10:45 | disposition home or self-care (01) | DRG 662 ==
LOC: ER 13:08 → MEDSURG3 19:58 → TELE3 20:32 → MEDSURG3 10-14 09:23
PROVIDERS: ADMIT Internal Medicine; ATTEND Internal Medicine
PROC: 05H633Z Insertion of Infusion Device into Left Subclavian Vein, Percutaneous Approach (ICD-10-PCS; principal; 2021-10-12)
PROC: B547ZZA Ultrasonography of Left Subclavian Vein, Guidance (ICD-10-PCS; principal; 2021-10-12)
DX: D57.00 Hb-SS disease with crisis, unspecified (principal); Z20.822 Contact with and (suspected) exposure to COVID-19; Z87.440 Personal history of urinary (tract) infections; D63.8 Anemia in other chronic diseases classified elsewhere
CPT/HCPCS: 36415; 70030-TC; 83735; 84100; 84703; 85025; A4663; G0378; J1170; J1200; J2405; J3490; J7040; Q0163

== ENCOUNTER 2021-10-29 14:12 | Emergency (ER) | payer OTHER ==
[~2021-10-29] VITALS: Ht 160 cm; Wt 104.3 kg
[~2021-10-29 14:12] MED LIST changes: -METR500T PO; -ONDA4TAB11 PO; -OXYC-128 PO; -OXYC-133 PO; -POTA-194 PO
--- NOTE | 2021-10-29 14:35 | NUR ---
at bedside to examine pt.
[2021-10-29] MEDS ORDERED: ONDANSETRON 4 MG/2 ML VIAL IV ONE (14:45)
[2021-10-29] MEDS ORDERED: IV NORMAL SALINE 1000 ML BAG IV ONE (14:45)
[2021-10-29] MEDS ORDERED: HYDROMORPHONE 1 MG/1 ML DISP.SYRIN IV ONE (14:45)
--- NOTE | 2021-10-29 15:38 | NUR ---
Unable to establish IV access pt. was pock many times unsucessfully. Physician notified that meds were unable to be administered.
[2021-10-29] MEDS ORDERED: diphenhydrAMINE 50 MG/1 ML VIAL IM ONE (17:45)
[2021-10-29] MEDS ORDERED: ONDANSETRON ODT 4 MG TAB.RAPDIS SL ONE (17:45)
[2021-10-29] MEDS ORDERED: HYDROMORPHONE 1 MG/1 ML DISP.SYRIN IM ONE (17:45)
[2021-10-29] MEDS ORDERED: ONDANSETRON ODT 4 MG TAB.RAPDIS ONE (18:30)
[2021-10-29] MEDS ORDERED: diphenhydrAMINE 50 MG/1 ML VIAL ONE (18:30)
[2021-10-29] MEDS ORDERED: HYDROMORPHONE 1 MG/1 ML DISP.SYRIN ONE ×2 (18:31→18:32)
--- NOTE | 2021-10-29 19:06 | NUR ---
Report given to incoming shift.
[2021-10-29 19:36] LABS: HEMATOCRIT 33.3 % (31.2-41.9); MEAN CORPUSCULAR HEMOGLOBIN 24.1 uug (24.7-32.8); MEAN CORPUSCULAR VOLUME 75.5 fL (75.5-95.3); PLATELET COUNT (AUTO) 251 K/uL (179-408)
--- NOTE | 2021-10-29 19:44 | NUR ---
Patient is able to walk with steady gait, NAD noted. Patient is a/ox4
--- NOTE | 2021-10-29 19:45 | NUR ---
Note azebmathew in EDM - 10/29/21 at 2028 by HEIDI Patient does not wish to proceed with medical care recommended by Dr. Yeh. Patient given information related to possible complications, up to and including , which could occur as a result of leaving the hospital at this time. Patient verbalizes understanding of risks involved due to leaving against medical advice. Patient refused to sign AMA form.
--- NOTE | 2021-10-29 19:50 | NUR ---
Patient eloped from facility. ER physician notified.
[2021-10-29 19:57] LABS: CARBON DIOXIDE 28 mmol/L (21-32); CHLORIDE 105 mmol/L (98-107); GLUCOSE 94 mg/dL (74-106); POTASSIUM 4.5 mmol/L (3.5-5.1); UREA NITROGEN, BLOOD 6 mg/dL (7-18)
[2021-10-29 20:30] VITALS: BP 130/86
== END 2021-10-29 19:50 | disposition left against medical advice (07) ==
LOC: ER 14:12
DX: R07.9 Chest pain, unspecified (principal); D57.00 Hb-SS disease with crisis, unspecified; Z79.82 Long term (current) use of aspirin; Z90.49 Acquired absence of other specified parts of digestive tract; Z90.81 Acquired absence of spleen; Z88.1 Allergy status to other antibiotic agents; Z88.0 Allergy status to penicillin; Z86.718 Personal history of other venous thrombosis and embolism; Z86.73 Personal history of transient ischemic attack (TIA), and cerebral infarction without residual deficits
CPT/HCPCS: 99285; 71045; 80048; 85025; 84484; 36415; 93005; 96372 ×2; J1170 ×2; A4663; J1200; Q0162

== ENCOUNTER 2021-11-18 20:34 | Emergency (ER) | payer OTHER ==
[~2021-11-18] VITALS: Ht 160 cm; Wt 99.8 kg
--- NOTE | 2021-11-18 22:15 | NUR ---
Dr. Ardon at bedside for MSE.
[2021-11-18] MEDS ORDERED: IV NS 1000 ML 1,000 ML IV ONE (22:45)
[2021-11-18] MEDS ORDERED: PROCHLORPERAZINE EDISYLATE 10 MG/2 ML VIAL IV ONE (22:45)
[2021-11-18] MEDS ORDERED: diphenhydrAMINE 50 MG/1 ML VIAL IV ONE (22:45)
[2021-11-18] MEDS ORDERED: HYDROMORPHONE 1 MG/1 ML DISP.SYRIN IV ONE (22:45)
[2021-11-18] MEDS ORDERED: PROCHLORPERAZINE EDISYLATE 10 MG/2 ML VIAL ONE (23:47)
[2021-11-18] MEDS ORDERED: diphenhydrAMINE 50 MG/1 ML VIAL ONE (23:47)
[2021-11-18] MEDS ORDERED: HYDROMORPHONE 2 MG/1 ML DISP.SYRIN ONE (23:47)
[2021-11-18 23:50] LABS: *BILIRUBIN,URIN NEGATIVE (NEGATIVE); *BLOOD, URINE 1+ (NEGATIVE); *CLARITY,URINE CLEAR (CLEAR); *COLOR,URINE YELLOW (YELLOW); *KETONES,URINE 1+ (NEGATIVE); *UROBILINOGEN,URINE 0.2 E.U./dl (NORMAL); LEUKOCYTE ESTERASE ,URINE NEGATIVE (NEGATIVE); NITRITE, URINE NEGATIVE (NEGATIVE); UGLUCOSE NEGATIVE (NEGATIVE)
[2021-11-19 00:06] LABS: WBC,URINE 0-3 /HPF (0-3)
[2021-11-19 00:07] LABS: BACTERIA,URINE NONE SEEN /HPF (NONE SEEN); SQUAMOUS EPITHELIAL CELL,UR FEW /HPF (NONE SEEN)
[2021-11-19] MEDS ORDERED: ONDANSETRON ODT 4 MG TAB.RAPDIS ONE (00:13)
[2021-11-19 00:15] LABS: HEMATOCRIT 33.4 % (31.2-41.9); MEAN CORPUSCULAR HEMOGLOBIN 23.8 uug (24.7-32.8); MEAN CORPUSCULAR VOLUME 72.9 fL (75.5-95.3); PLATELET COUNT (AUTO) 407 K/uL (179-408)
[2021-11-19] MEDS ORDERED: ONDANSETRON ODT 4 MG TAB.RAPDIS SL ONE (00:15)
[2021-11-19] MEDS ORDERED: HYDROMORPHONE 1 MG/1 ML DISP.SYRIN IV ONE ×2 (00:15→02:00)
[2021-11-19 00:27] LABS: POTASSIUM 3.6 mmol/L (3.5-5.1)
[2021-11-19 00:33] LABS: BILIRUBIN,DIRECT 0.1 mg/dL (0.0-0.2); BILIRUBIN,TOTAL 0.3 mg/dL (0.2-1.0); TOTAL PROTEIN, SERUM 8.4 g/dL (6.4-8.2)
[2021-11-19] MEDS ORDERED: HYDROMORPHONE 2 MG/1 ML DISP.SYRIN ONE ×2 (00:41→02:07)
[2021-11-19] MEDS ORDERED: diphenhydrAMINE 50 MG/1 ML VIAL ONE ×2 (00:43→02:06)
[2021-11-19] MEDS ORDERED: diphenhydrAMINE 50 MG/1 ML VIAL IV ONE ×2 (00:45→02:00)
[2021-11-19 01:01] LABS: LYMPHOCYTES % (MANUAL) 16 % (20-40); MONOCYTES % (MANUAL) 6 % (2-10); NEUTROPHILS % (MANUAL) 78 % (42-75)
[2021-11-19] MEDS ORDERED: OXYC-128 PO (02:07)
[2021-11-19] MEDS ORDERED: ONDA4TAB5 PO (02:07)
[2021-11-19 02:16] VITALS: BP 138/89
--- NOTE | 2021-11-19 02:16 | NUR ---
Patient discharged to home in stable condition. Written and verbal after care instructions given. Patient verbalizes understanding of instructions. Stressed follow up or return to ER for worsening s/s. Patient out of ER with steady gait, no acute signs of distress, VSS, all belongings taken, IV site discontinued.
== END 2021-11-19 02:16 | disposition home or self-care (01) ==
LOC: ER 20:44
DX: D57.1 Sickle-cell disease without crisis (principal); S30.0XXA Contusion of lower back and pelvis, initial encounter; X58.XXXA Exposure to other specified factors, initial encounter; Y92.89 Other specified places as the place of occurrence of the external cause; Z90.49 Acquired absence of other specified parts of digestive tract; Z90.81 Acquired absence of spleen; Z86.73 Personal history of transient ischemic attack (TIA), and cerebral infarction without residual deficits; Z88.1 Allergy status to other antibiotic agents; Z88.0 Allergy status to penicillin
CPT/HCPCS: 99285; 96374; 71045; 96375; 81001; 36415; 93005; 80076; 80048; 83735; 85025; 84484; 96376; 85007; J1200 ×3; J0780; J1170 ×3; J7040; 70030-TC; Q0162

== ENCOUNTER 2021-12-04 21:43 | Emergency (ER) | payer OTHER ==
[~2021-12-04] VITALS: Ht 160 cm; Wt 99.8 kg
[~2021-12-04 21:43] MED LIST changes: +ONDA4TAB5 PO; +OXYC-128 PO
[2021-12-04] MEDS ORDERED: HYDROMORPHONE 1 MG/1 ML DISP.SYRIN IM ONE (23:15)
[2021-12-04] MEDS ORDERED: HYDROMORPHONE 2 MG/1 ML DISP.SYRIN ONE (23:20)
--- NOTE | 2021-12-04 23:26 | NUR ---
Patient is a/ox4, NAD noted. Patient is able to walk with steady gait
[2021-12-05 00:07] LABS: CREATININE 1.1 mg/dL (0.6-1.3); POTASSIUM 4.2 mmol/L (3.5-5.1)
[2021-12-05 00:10] LABS: HEMATOCRIT 35.7 % (31.2-41.9); MEAN CORPUSCULAR VOLUME 72.7 fL (75.5-95.3); PLATELET COUNT (AUTO) 438 K/uL (179-408)
[2021-12-05 00:54] LABS: *BILIRUBIN,URIN NEGATIVE (NEGATIVE); *BLOOD, URINE NEGATIVE (NEGATIVE); *CLARITY,URINE CLEAR (CLEAR); *COLOR,URINE YELLOW (YELLOW); *KETONES,URINE NEGATIVE (NEGATIVE); *UROBILINOGEN,URINE 0.2 E.U./dl (NORMAL); LEUKOCYTE ESTERASE ,URINE NEGATIVE (NEGATIVE); NITRITE, URINE NEGATIVE (NEGATIVE); UGLUCOSE NEGATIVE (NEGATIVE)
--- NOTE | 2021-12-05 01:18 | NUR ---
Patient discharged to home in stable condition. Written and verbal after care instructions given. Patient verbalizes understanding of instructions. Stressed follow up or return to ER for worsening s/s. Patient is a/ox4, NAD noted. Patient is able to walk with steady gait
[2021-12-05 01:21] VITALS: BP 128/72
== END 2021-12-05 01:21 | disposition home or self-care (01) ==
LOC: ER 21:49
DX: D57.00 Hb-SS disease with crisis, unspecified (principal); Z86.73 Personal history of transient ischemic attack (TIA), and cerebral infarction without residual deficits; Z90.49 Acquired absence of other specified parts of digestive tract; Z90.81 Acquired absence of spleen
CPT/HCPCS: 99283; 80048; 85025; 85044; 36415; 96372; 81003; 87086; J1170; 70030-TC; A4663

== ENCOUNTER 2021-12-29 18:28 | Emergency (ER) | payer OTHER ==
[~2021-12-29] VITALS: Ht 160 cm; Wt 99.8 kg
--- NOTE | 2021-12-29 18:35 | NUR ---
PT IS IN ROOM #2B. DR NICHOLS EVALUATED THE PT.
[2021-12-29] MEDS ORDERED: IV NORMAL SALINE 1000 ML BAG IV ONE (18:45)
[2021-12-29] MEDS ORDERED: HYDROMORPHONE 1 MG/1 ML DISP.SYRIN IV ONE ×2 (18:45→22:45)
[2021-12-29] MEDS ORDERED: ONDANSETRON 4 MG/2 ML VIAL IV ONE (19:00)
[2021-12-29 20:31] LABS: HEMATOCRIT 33.7 % (31.2-41.9); MEAN CORPUSCULAR HEMOGLOBIN 21.9 uug (24.7-32.8); PLATELET COUNT (AUTO) 475 K/uL (179-408)
[2021-12-29 20:38] LABS: CREATININE 1.1 mg/dL (0.6-1.3); POTASSIUM 3.4 mmol/L (3.5-5.1)
[2021-12-29] MEDS ORDERED: HYDROMORPHONE 1 MG/1 ML DISP.SYRIN ONE ×2 (21:20→22:54)
[2021-12-29] MEDS ORDERED: ONDANSETRON 4 MG/2 ML VIAL ONE (21:20)
[2021-12-29] MEDS ORDERED: diphenhydrAMINE 50 MG/1 ML VIAL IV ONE ×2 (21:30→22:45)
[2021-12-29] MEDS ORDERED: diphenhydrAMINE 50 MG/1 ML VIAL ONE ×2 (21:31→22:55)
[2021-12-29] MEDS ORDERED: HYDR-3972 PO ×2 (23:29→23:30)
--- NOTE | 2021-12-29 23:43 | NUR ---
Patient discharged to home in stable condition. Written and verbal after care instructions given. Patient verbalizes understanding of instructions. Stressed follow up or return to ER for worsening s/s. Patient out of ER with steady gait, no acute signs of distress, VSS, all belongings taken, IV site discontinued, instructed not to drive, to be driven home via private vehicle by boyfriend.
[2021-12-29 23:44] VITALS: BP 127/83
== END 2021-12-29 23:44 | disposition home or self-care (01) ==
LOC: ER 18:28
DX: D57.00 Hb-SS disease with crisis, unspecified (principal); Z86.73 Personal history of transient ischemic attack (TIA), and cerebral infarction without residual deficits; Z86.718 Personal history of other venous thrombosis and embolism; Z86.711 Personal history of pulmonary embolism; Z79.82 Long term (current) use of aspirin; Z79.02 Long term (current) use of antithrombotics/antiplatelets; Z90.81 Acquired absence of spleen; Z90.49 Acquired absence of other specified parts of digestive tract
CPT/HCPCS: 99284; 96374; 96361; 96375; 80048; 85025; 85044; 36415; 96376; J1200 ×2; J2405; J1170 ×2; J7040; 70030-TC

== ENCOUNTER 2022-01-12 18:35 | Emergency (ER) | payer OTHER ==
[~2022-01-12] VITALS: Ht 160 cm; Wt 99.8 kg
[~2022-01-12 18:35] MED LIST changes: +HYDR-3972 PO
[2022-01-12 20:07] LABS: *BILIRUBIN,URIN NEGATIVE (NEGATIVE); *BLOOD, URINE 1+ (NEGATIVE); *CLARITY,URINE CLEAR (CLEAR); *COLOR,URINE YELLOW (YELLOW); *KETONES,URINE TRACE (NEGATIVE); *UROBILINOGEN,URINE 0.2 E.U./dl (NORMAL); LEUKOCYTE ESTERASE ,URINE NEGATIVE (NEGATIVE); NITRITE, URINE NEGATIVE (NEGATIVE); PH,URINE 5.5 (5.0-8.0); UGLUCOSE NEGATIVE (NEGATIVE)
[2022-01-12 20:12] LABS: *URINE HCG, QUAL NEG (NEGATIVE)
[2022-01-12] MEDS ORDERED: MORPHINE SULFATE 4 MG/1 ML DISP.SYRIN IV ONE (20:30)
[2022-01-12] MEDS ORDERED: MORPHINE SULFATE 4 MG/1 ML DISP.SYRIN ONE (21:05)
[2022-01-12 21:46] LABS: BACTERIA,URINE FEW /HPF (NONE SEEN); SQUAMOUS EPITHELIAL CELL,UR MODERATE /HPF (NONE SEEN); WBC,URINE 0-3 /HPF (0-3)
[2022-01-12] MEDS ORDERED: HYDROMORPHONE 1 MG/1 ML DISP.SYRIN ONE (22:01)
[2022-01-12] MEDS: HYDROMORPHONE 1 MG/1 ML DISP.SYRIN IV ONE (22:27)
[2022-01-12] MEDS ORDERED: diphenhydrAMINE 25 MG CAP PO ONE (22:28)
[2022-01-12] MEDS: IV NORMAL SALINE 1000 ML BAG IV ONE (23:00)
[2022-01-12] MEDS: diphenhydrAMINE 25 MG CAP PO ONE (23:18)
[2022-01-12] MEDS ORDERED: DOXY100T2 PO (23:38)
[2022-01-13] MEDS ORDERED: HYDROMORPHONE 1 MG/1 ML DISP.SYRIN ONE (00:09)
[2022-01-13] MEDS ORDERED: CEFTRIAXONE 500 MG VIAL ONE (00:09)
[2022-01-13] MEDS: HYDROMORPHONE 1 MG/1 ML DISP.SYRIN IV ONE (00:10)
[2022-01-13] MEDS: CEFTRIAXONE 500 MG VIAL IM ONE (00:10)
[2022-01-13 01:16] VITALS: BP 145/59
== END 2022-01-13 00:24 | disposition home or self-care (01) ==
LOC: ER 18:37
DX: R30.0 Dysuria (principal); D57.1 Sickle-cell disease without crisis; E86.0 Dehydration; Z90.49 Acquired absence of other specified parts of digestive tract; Z90.81 Acquired absence of spleen; Z86.718 Personal history of other venous thrombosis and embolism; Z86.711 Personal history of pulmonary embolism; Z79.899 Other long term (current) drug therapy; Z86.73 Personal history of transient ischemic attack (TIA), and cerebral infarction without residual deficits
CPT/HCPCS: 84703; A4663; J0696; J1170; J2270; J7040; Q0163

== ENCOUNTER 2022-03-05 18:21 | Emergency (ER) | payer OTHER ==
[~2022-03-05] VITALS: Ht 160 cm; Wt 99.8 kg
[~2022-03-05 18:21] MED LIST changes: +DOXY100T2 PO
[2022-03-05] MEDS ORDERED: IV NS 1000 ML 1,000 ML IV ONE (18:45)
[2022-03-05] MEDS ORDERED: HYDROMORPHONE 1 MG/1 ML DISP.SYRIN IV ONE ×3 (18:45→23:15)
[2022-03-05] MEDS ORDERED: ONDANSETRON 4 MG/2 ML VIAL IV ONE (18:45)
[2022-03-05] MEDS ORDERED: ONDANSETRON 4 MG/2 ML VIAL ONE (19:00)
[2022-03-05] MEDS ORDERED: HYDROMORPHONE 2 MG/1 ML DISP.SYRIN ONE ×3 (19:01→23:29)
[2022-03-05 19:28] LABS: HEMATOCRIT 34.9 % (31.2-41.9); MEAN CORPUSCULAR HEMOGLOBIN 21.1 uug (24.7-32.8); MEAN CORPUSCULAR VOLUME 68.7 fL (75.5-95.3); PLATELET COUNT (AUTO) 363 K/uL (179-408)
[2022-03-05 19:37] LABS: CREATININE 1.1 mg/dL (0.6-1.3); POTASSIUM 3.3 mmol/L (3.5-5.1)
[2022-03-05] MEDS ORDERED: diphenhydrAMINE 50 MG/1 ML VIAL ONE ×3 (19:43→23:29)
[2022-03-05] MEDS ORDERED: diphenhydrAMINE 50 MG/1 ML VIAL IV ONE ×3 (19:45→23:15)
--- NOTE | 2022-03-05 19:54 | NUR ---
Patient resting in bed fully dressed, no s/s of any distress noted at this time. #24g established in right finger, medicated for pain and nausea as per order patient also medicated with 25mg of benadryl for redness at site MD was made aware, Patient assisted into gown and placed on monitor. EKG in pregress for MD review.
[2022-03-05] MEDS ORDERED: HYDR-3980 PO (23:34)
--- NOTE | 2022-03-05 23:35 | NUR ---
patient c/o pain 06/19, medicated as per order. IVF continue to infuse at 200/hr d/t small angio cath. approx 200cc left. no s/s of any distress noted.
--- NOTE | 2022-03-05 23:45 | NUR ---
IV removed. Catheter intact and site benign. Pressure and 4x4 gauze applied to site. No bleeding noted.
--- NOTE | 2022-03-05 23:47 | NUR ---
Patient discharged to home in stable condition with friend taking patient home. Written and verbal after care instructions given. Patient verbalizes understanding of instructions. Stressed follow up or return to ER for worsening s/s.
[2022-03-05 23:51] VITALS: BP 118/85
== END 2022-03-05 23:52 | disposition home or self-care (01) ==
LOC: ER 18:21
DX: D57.00 Hb-SS disease with crisis, unspecified (principal); R07.9 Chest pain, unspecified; R73.03 Prediabetes; Z90.81 Acquired absence of spleen; Z86.73 Personal history of transient ischemic attack (TIA), and cerebral infarction without residual deficits; Z90.49 Acquired absence of other specified parts of digestive tract; Z86.718 Personal history of other venous thrombosis and embolism; Z79.82 Long term (current) use of aspirin; Z79.899 Other long term (current) drug therapy
CPT/HCPCS: 99285; 96374; 96361; 71045; 96375; 80048; 85025; 85044; 36415; 93005; 96376; J1200 ×3; J2405; J1170 ×3; J7040; 70030-TC; A4663

== ENCOUNTER 2022-04-05 23:15 | Emergency (ER) | payer OTHER ==
[~2022-04-05] VITALS: Ht 160 cm; Wt 97.5 kg
[~2022-04-05 23:15] MED LIST changes: +HYDR-3980 PO
[2022-04-05] MEDS ORDERED: diphenhydrAMINE 50 MG/1 ML VIAL IV ONE (23:45)
[2022-04-05] MEDS ORDERED: IV NS 1000 ML 1,000 ML IV ONE (23:45)
[2022-04-05] MEDS ORDERED: HYDROMORPHONE 1 MG/1 ML DISP.SYRIN IV ONE (23:45)
[2022-04-06] MEDS ORDERED: HYDROMORPHONE 2 MG/1 ML DISP.SYRIN ONE ×3 (00:16→04:23)
[2022-04-06] MEDS ORDERED: diphenhydrAMINE 50 MG/1 ML VIAL ONE ×3 (00:17→04:22)
[2022-04-06] MEDS ORDERED: diphenhydrAMINE 50 MG/1 ML VIAL IV ONE ×3 (02:15→06:15)
[2022-04-06] MEDS ORDERED: HYDROMORPHONE 1 MG/1 ML DISP.SYRIN IV ONE ×3 (02:15→05:45)
[2022-04-06] MEDS ORDERED: HYDR-3980 PO (05:38)
[2022-04-06] MEDS ORDERED: HYDROMORPHONE 1 MG/1 ML DISP.SYRIN ONE (06:07)
[2022-04-06 06:33] VITALS: BP 112/80
== END 2022-04-06 06:33 | disposition home or self-care (01) ==
LOC: ER 23:15
DX: D57.00 Hb-SS disease with crisis, unspecified (principal); R00.0 Tachycardia, unspecified; Z90.49 Acquired absence of other specified parts of digestive tract; Z90.81 Acquired absence of spleen; Z86.73 Personal history of transient ischemic attack (TIA), and cerebral infarction without residual deficits; Z86.718 Personal history of other venous thrombosis and embolism; Z86.711 Personal history of pulmonary embolism; Z88.1 Allergy status to other antibiotic agents; Z88.0 Allergy status to penicillin
CPT/HCPCS: 99284; 96374; 96375; 96376; J1200 ×3; J1170 ×4; J7040; A4663

== ENCOUNTER 2022-04-16 16:40 | Emergency (ER) | payer OTHER ==
[~2022-04-16] VITALS: Ht 160 cm; Wt 97.5 kg
--- NOTE | 2022-04-16 16:56 | NUR ---
MD@bedside, medical screening exam in progress
[2022-04-16] MEDS ORDERED: HYDROMORPHONE 1 MG/1 ML DISP.SYRIN IV ONE ×3 (17:00→18:45)
[2022-04-16] MEDS ORDERED: ONDANSETRON 4 MG/2 ML VIAL IV ONE (17:00)
[2022-04-16] MEDS ORDERED: IV NORMAL SALINE 1000 ML BAG IV ONE (17:00)
--- NOTE | 2022-04-16 17:00 | NUR ---
Patient said that she is an extremely "hard stick" for IV insertion. Per patient's verbalization, "I usually have my IV line inserted in my fingers or my breasts. Just give me warm packs." Shadow of vein was seen@R breast area. IV line was successfully inserted at the right breast area with one attempt.
[2022-04-16] MEDS ORDERED: HYDROMORPHONE 1 MG/1 ML DISP.SYRIN ONE ×3 (17:10→18:44)
[2022-04-16] MEDS ORDERED: ONDANSETRON 4 MG/2 ML VIAL ONE (17:10)
[2022-04-16 17:26] LABS: HEMATOCRIT 35.1 % (31.2-41.9); MEAN CORPUSCULAR HEMOGLOBIN 22.3 uug (24.7-32.8); MEAN CORPUSCULAR VOLUME 72.2 fL (75.5-95.3); PLATELET COUNT (AUTO) 336 K/uL (179-408)
[2022-04-16 17:35] LABS: CREATININE 0.8 mg/dL (0.6-1.3); POTASSIUM 4.2 mmol/L (3.5-5.1)
[2022-04-16] MEDS ORDERED: diphenhydrAMINE 50 MG/1 ML VIAL ONE ×3 (17:42→17:55)
[2022-04-16] MEDS ORDERED: diphenhydrAMINE 50 MG/1 ML VIAL IV ONE ×2 (17:45→18:00)
--- NOTE | 2022-04-16 18:31 | NUR ---
Patient said that she is calling [employer] for her ride home. Patient discharged to home in stable condition with steady gait. Written and verbal after care instructions given to patient. Patient verbalized understanding and compliance of instructions. Stressed follow up with primary doctor and sole rounder or return to ER for worsening s/s.
--- NOTE | 2022-04-16 18:32 | NUR ---
Before removing the IV line, patient is asking for more IV Dilaudid. Dr Owens notified.
[2022-04-16 18:52] VITALS: BP 120/71
--- NOTE | 2022-04-16 18:52 | NUR ---
IV removed. Catheter intact and site benign. Pressure and 4x4 gauze applied to site. No bleeding noted.
--- NOTE | 2022-04-16 18:53 | NUR ---
Patient left ER with steady gait. Patient said that she is using [employer] as her ride.
== END 2022-04-16 18:53 | disposition home or self-care (01) ==
LOC: ER 16:42
DX: D57.00 Hb-SS disease with crisis, unspecified (principal); Z90.49 Acquired absence of other specified parts of digestive tract; Z90.81 Acquired absence of spleen; Z86.73 Personal history of transient ischemic attack (TIA), and cerebral infarction without residual deficits; Z86.718 Personal history of other venous thrombosis and embolism; Z86.711 Personal history of pulmonary embolism; Z79.82 Long term (current) use of aspirin
CPT/HCPCS: 99284; 96374; 96375; 96361; 80048; 85025; 85044; 36415; 96376; J1200 ×3; J2405; J1170 ×3; J7040; 70030-TC; A4663

== ENCOUNTER 2022-04-30 19:25 | Emergency (ER) | payer OTHER ==
[~2022-04-30] VITALS: Ht 160 cm; Wt 99.8 kg
--- NOTE | 2022-04-30 19:50 | NUR ---
patient walked to ER with steady gait c/o left leg and back pain that started yesterday. Patient is a/ox4, NAD noted.
[2022-04-30] MEDS ORDERED: IV NS 1000 ML 1,000 ML IV ONE (20:00)
[2022-04-30] MEDS ORDERED: diphenhydrAMINE 50 MG/1 ML VIAL IV ONE (20:00)
[2022-04-30] MEDS ORDERED: HYDROMORPHONE 1 MG/1 ML DISP.SYRIN IV ONE ×2 (20:00→21:45)
[2022-04-30] MEDS ORDERED: diphenhydrAMINE 50 MG/1 ML VIAL ONE (20:19)
[2022-04-30] MEDS ORDERED: HYDROMORPHONE 2 MG/1 ML DISP.SYRIN ONE ×2 (20:19→21:38)
[2022-04-30 20:30] LABS: HEMATOCRIT 35.6 % (31.2-41.9); MEAN CORPUSCULAR VOLUME 73.5 fL (75.5-95.3); PLATELET COUNT (AUTO) 365 K/uL (179-408)
[2022-04-30 20:40] LABS: CREATININE 0.8 mg/dL (0.6-1.3); POTASSIUM 3.6 mmol/L (3.5-5.1)
[2022-05-01] MEDS ORDERED: diphenhydrAMINE 50 MG/1 ML VIAL ONE ×2 (00:19→00:47)
[2022-05-01] MEDS ORDERED: HYDROMORPHONE 2 MG/1 ML DISP.SYRIN ONE (00:19)
[2022-05-01] MEDS ORDERED: diphenhydrAMINE 50 MG/1 ML VIAL IV ONE ×2 (00:30→01:15)
[2022-05-01] MEDS ORDERED: HYDROMORPHONE 1 MG/1 ML DISP.SYRIN IV ONE (00:30)
--- NOTE | 2022-05-01 00:40 | NUR ---
Patient stated benadryl 25mg IV did not work for her allergic reaction. notified
--- NOTE | 2022-05-01 00:45 | NUR ---
Dr Ardon verbally ordered additional Benadryl 25mg IV
--- NOTE | 2022-05-01 01:03 | NUR ---
Bendryl 25mg IV given.
--- NOTE | 2022-05-01 01:04 | NUR ---
Patient discharged to home in stable condition. Written and verbal after care instructions given. Patient verbalizes understanding of instructions. Stressed follow up or return to ER for worsening s/s. Patient is a/ox4, NAD noted, patient is ambulatory with steady gait.
[2022-05-01 01:05] VITALS: BP 129/72
== END 2022-05-01 01:05 | disposition home or self-care (01) ==
LOC: ER 19:27
DX: D57.00 Hb-SS disease with crisis, unspecified (principal); Z90.81 Acquired absence of spleen; Z90.49 Acquired absence of other specified parts of digestive tract; Z86.718 Personal history of other venous thrombosis and embolism; Z86.711 Personal history of pulmonary embolism; Z86.73 Personal history of transient ischemic attack (TIA), and cerebral infarction without residual deficits; Z79.02 Long term (current) use of antithrombotics/antiplatelets; Z79.82 Long term (current) use of aspirin
CPT/HCPCS: 99284; 96374; 96361; 96375 ×2; 80048; 85025; 36415; 96376 ×2; J1200 ×3; J1170 ×3; J7040

== ENCOUNTER 2022-05-16 23:54 | Emergency (ER) | payer OTHER ==
[~2022-05-16] VITALS: Ht 160 cm; Wt 99.8 kg
--- NOTE | 2022-05-17 00:15 | NUR ---
Patient placed in room 2B
--- NOTE | 2022-05-17 00:21 | NUR ---
Dr. Ardon evaluated patient at bedside. MSE in progress.
[2022-05-17] MEDS ORDERED: diphenhydrAMINE 50 MG/1 ML VIAL IV ONE ×3 (00:30→04:30)
[2022-05-17] MEDS ORDERED: HYDROMORPHONE 1 MG/1 ML DISP.SYRIN IV ONE ×3 (00:30→04:30)
[2022-05-17] MEDS ORDERED: IV NS 1000 ML 1,000 ML IV ONE (00:30)
--- NOTE | 2022-05-17 01:00 | NUR ---
LAB AT BEDSIDE DRAWING BLOOD.
[2022-05-17 01:24] LABS: HEMATOCRIT 35.9 % (31.2-41.9); MEAN CORPUSCULAR HEMOGLOBIN 23.7 uug (24.7-32.8); MEAN CORPUSCULAR VOLUME 74.6 fL (75.5-95.3); PLATELET COUNT (AUTO) 339 K/uL (179-408)
[2022-05-17] MEDS ORDERED: diphenhydrAMINE 50 MG/1 ML VIAL ONE ×3 (01:31→04:31)
[2022-05-17] MEDS ORDERED: HYDROMORPHONE 2 MG/1 ML DISP.SYRIN ONE ×2 (01:32→02:55)
[2022-05-17 01:41] LABS: CARBON DIOXIDE 26 mmol/L (21-32); CHLORIDE 102 mmol/L (98-107); CREATININE 1.1 mg/dL (0.6-1.3); GLUCOSE 92 mg/dL (74-106); POTASSIUM 3.8 mmol/L (3.5-5.1); UREA NITROGEN, BLOOD 8 mg/dL (7-18)
--- NOTE | 2022-05-17 02:57 | NUR ---
Patient c/o of generalized pain. Dilaudid 2mg IV given.
[2022-05-17] MEDS ORDERED: HYDROMORPHONE 1 MG/1 ML DISP.SYRIN ONE (04:32)
--- NOTE | 2022-05-17 04:35 | NUR ---
Patient c/o lower back pain 08/19. Dilaudid 1mg IV given per Dr. Ardon's order.
[2022-05-17 04:53] VITALS: BP 137/83
== END 2022-05-17 04:56 | disposition home or self-care (01) ==
LOC: ER 23:57
DX: R07.89 Other chest pain (principal); D57.00 Hb-SS disease with crisis, unspecified; Z90.49 Acquired absence of other specified parts of digestive tract; Z86.73 Personal history of transient ischemic attack (TIA), and cerebral infarction without residual deficits; Z88.0 Allergy status to penicillin; Z88.1 Allergy status to other antibiotic agents; Z79.2 Long term (current) use of antibiotics; Z79.899 Other long term (current) drug therapy; Z79.82 Long term (current) use of aspirin
CPT/HCPCS: 99284; 96374; 96361; 96375; 80048; 85025; 84484; 36415; 93005; 96376; J1200 ×3; J1170 ×3; J7040; A4663

== ENCOUNTER 2022-05-31 20:23 | Emergency (ER) | payer OTHER ==
[~2022-05-31] VITALS: Ht 160 cm; Wt 99.8 kg
[2022-05-31] MEDS ORDERED: diphenhydrAMINE 50 MG/1 ML VIAL IV ONE (22:45)
[2022-05-31] MEDS ORDERED: HYDROMORPHONE 1 MG/1 ML DISP.SYRIN IV ONE (22:45)
[2022-05-31] MEDS ORDERED: HYDROMORPHONE 1 MG/1 ML DISP.SYRIN ONE (23:42)
[2022-05-31] MEDS ORDERED: diphenhydrAMINE 50 MG/1 ML VIAL ONE (23:43)
[2022-06-01] MEDS ORDERED: IV NS 1000 ML 1,000 ML IV ONE (01:15)
[2022-06-01] MEDS ORDERED: diphenhydrAMINE 50 MG/1 ML VIAL IV ONE ×2 (01:30→03:45)
[2022-06-01] MEDS ORDERED: HYDROMORPHONE 1 MG/1 ML DISP.SYRIN IV ONE ×2 (01:30→03:45)
[2022-06-01] MEDS ORDERED: diphenhydrAMINE 50 MG/1 ML VIAL ONE ×2 (01:30→03:59)
[2022-06-01] MEDS ORDERED: HYDROMORPHONE 2 MG/1 ML DISP.SYRIN ONE (01:31)
[2022-06-01 02:10] LABS: HEMATOCRIT 33.5 % (31.2-41.9); MEAN CORPUSCULAR VOLUME 75.3 fL (75.5-95.3); PLATELET COUNT (AUTO) 304 K/uL (179-408)
[2022-06-01 02:23] LABS: CREATININE 0.9 mg/dL (0.6-1.3); POTASSIUM 3.8 mmol/L (3.5-5.1)
[2022-06-01] MEDS ORDERED: HYDROMORPHONE 1 MG/1 ML DISP.SYRIN ONE (03:59)
[2022-06-01] MEDS ORDERED: HYDR25SU33 RC (04:03)
[2022-06-01] MEDS ORDERED: HYDR-3980 PO (04:14)
--- NOTE | 2022-06-01 04:50 | NUR ---
Patient discharged to home in stable condition. Written and verbal after care instructions given. Patient verbalizes understanding of instructions. Stressed follow up or return to ER for worsening s/s. Patient walked out with steady gait.
[2022-06-01 05:25] VITALS: BP 118/78
== END 2022-06-01 05:00 | disposition home or self-care (01) ==
LOC: ER 20:23
DX: D57.00 Hb-SS disease with crisis, unspecified (principal); R10.32 Left lower quadrant pain; K64.9 Unspecified hemorrhoids; Z86.73 Personal history of transient ischemic attack (TIA), and cerebral infarction without residual deficits; Z90.49 Acquired absence of other specified parts of digestive tract; Z88.0 Allergy status to penicillin; Z88.1 Allergy status to other antibiotic agents; Z79.2 Long term (current) use of antibiotics; Z79.899 Other long term (current) drug therapy; Z79.82 Long term (current) use of aspirin
CPT/HCPCS: 99284; 96374; 96375; 36415; 96361; 80048; 85025; 96376; J1200 ×3; J1170 ×3; J7040; A4663

== ENCOUNTER 2022-06-22 23:18 | Emergency (ER) | payer OTHER ==
[~2022-06-22] VITALS: Ht 160 cm; Wt 99.8 kg
[~2022-06-22 23:18] MED LIST changes: +HYDR25SU33 RC
[2022-06-23] MEDS ORDERED: ONDANSETRON 4 MG/2 ML VIAL IV ONE
[2022-06-23] MEDS ORDERED: IV NS 1000 ML 1,000 ML IV ONE ×2
[2022-06-23] MEDS ORDERED: HYDROMORPHONE 2 MG/1 ML DISP.SYRIN ONE ×3 (00:36→02:15)
[2022-06-23] MEDS ORDERED: diphenhydrAMINE 50 MG/1 ML VIAL ONE ×4 (00:36→03:53)
[2022-06-23] MEDS ORDERED: ONDANSETRON 4 MG/2 ML VIAL ONE (00:36)
[2022-06-23] MEDS ORDERED: diphenhydrAMINE 50 MG/1 ML VIAL IV ONE ×4 (01:15→04:00)
[2022-06-23] MEDS ORDERED: HYDROMORPHONE 1 MG/1 ML DISP.SYRIN IV ONE ×4 (01:15→04:00)
[2022-06-23] MEDS ORDERED: HYDR-3980 PO (02:18)
--- NOTE | 2022-06-23 02:36 | NUR ---
Observed patient ambulate to restroom wth a steady gait.
[2022-06-23] MEDS ORDERED: HYDROMORPHONE 1 MG/1 ML DISP.SYRIN ONE (03:48)
--- NOTE | 2022-06-23 04:10 | NUR ---
Patient a/o x 4. NAD noted. Ambulatory with a steady gait. All belongings with patient. Patient discharged to home in stable condition. Written and verbal after care instructions given. Patient verbalizes understanding of instructions. Stressed follow up or return to ER for worsening s/s.
[2022-06-23 04:14] VITALS: BP 130/80
== END 2022-06-23 04:11 | disposition home or self-care (01) ==
LOC: ER 23:18
DX: D57.00 Hb-SS disease with crisis, unspecified (principal); Z86.73 Personal history of transient ischemic attack (TIA), and cerebral infarction without residual deficits; Z90.49 Acquired absence of other specified parts of digestive tract; Z90.89 Acquired absence of other organs; Z88.0 Allergy status to penicillin; Z88.1 Allergy status to other antibiotic agents; Z79.2 Long term (current) use of antibiotics; Z79.899 Other long term (current) drug therapy; Z79.82 Long term (current) use of aspirin
CPT/HCPCS: 99284; 96374; 96361; 96375; 96376; J1200 ×4; J2405; J1170 ×4; J7040 ×2; A4663

== ENCOUNTER 2022-07-05 23:43 | Emergency (ER) | payer OTHER ==
[~2022-07-05] VITALS: Ht 160 cm; Wt 99.8 kg
[2022-07-06] MEDS ORDERED: HYDROMORPHONE 2 MG/1 ML DISP.SYRIN ONE ×2 (00:07→01:28)
[2022-07-06] MEDS ORDERED: diphenhydrAMINE 50 MG/1 ML VIAL ONE ×2 (00:07→01:28)
--- NOTE | 2022-07-06 00:10 | NUR ---
PATIENT ARRIVED AT THE ER WITH C/O OF RIGHT LOWER BACK PAIN.
[2022-07-06 00:25] LABS: HEMATOCRIT 35.5 % (31.2-41.9); MEAN CORPUSCULAR HEMOGLOBIN 24.7 uug (24.7-32.8); MEAN CORPUSCULAR VOLUME 75.8 fL (75.5-95.3); PLATELET COUNT (AUTO) 431 K/uL (179-408)
[2022-07-06] MEDS ORDERED: IV NORMAL SALINE 1000 ML BAG IV ONE (01:30)
[2022-07-06] MEDS ORDERED: diphenhydrAMINE 50 MG/1 ML VIAL IV ONE ×2 (01:30)
[2022-07-06] MEDS ORDERED: HYDROMORPHONE 1 MG/1 ML DISP.SYRIN IV ONE ×2 (01:30)
--- NOTE | 2022-07-06 02:00 | NUR ---
Patient discharged to home in stable condition. Written and verbal after care instructions given. Patient verbalizes understanding of instructions. Stressed follow up or return to ER for worsening s/s. Patient is a/ox4, NAD noted. Patient ambulated with steady gait
[2022-07-06 02:15] VITALS: BP 115/61
== END 2022-07-06 02:15 | disposition home or self-care (01) ==
LOC: ER 23:53
DX: D57.00 Hb-SS disease with crisis, unspecified (principal); G89.4 Chronic pain syndrome; F11.10 Opioid abuse, uncomplicated; Z86.73 Personal history of transient ischemic attack (TIA), and cerebral infarction without residual deficits; Z90.49 Acquired absence of other specified parts of digestive tract; Z90.89 Acquired absence of other organs; Z88.0 Allergy status to penicillin; Z88.1 Allergy status to other antibiotic agents; Z79.899 Other long term (current) drug therapy; Z79.82 Long term (current) use of aspirin
CPT/HCPCS: 99284; 36415; 96374; 96375; 85025; 96376; J1200 ×2; J1170 ×2; J7040; A4663

== ENCOUNTER 2022-07-21 05:10 | Emergency (ER) | payer OTHER ==
[~2022-07-21] VITALS: Ht 160 cm; Wt 99.8 kg
--- NOTE | 2022-07-21 05:20 | NUR ---
Dr. Owens evaluated patient at bedside. MSE in progress.
[2022-07-21] MEDS ORDERED: ONDANSETRON 4 MG/2 ML VIAL IV ONE (05:30)
[2022-07-21] MEDS ORDERED: KETOROLAC TROMETHAMINE 30 MG INJ IVP ONE (05:30)
[2022-07-21] MEDS ORDERED: diphenhydrAMINE 50 MG/1 ML VIAL IV ONE ×2 (05:30→07:15)
[2022-07-21] MEDS ORDERED: IV NORMAL SALINE 1000 ML BAG IV ONE (05:30)
[2022-07-21] MEDS ORDERED: HYDROMORPHONE 1 MG/1 ML DISP.SYRIN IV ONE ×2 (05:30→07:15)
[2022-07-21] MEDS ORDERED: diphenhydrAMINE 50 MG/1 ML VIAL ONE ×2 (05:45→07:09)
[2022-07-21] MEDS ORDERED: ONDANSETRON 4 MG/2 ML VIAL ONE (05:45)
[2022-07-21] MEDS ORDERED: HYDROMORPHONE 2 MG/1 ML DISP.SYRIN ONE ×2 (05:46→07:10)
[2022-07-21] MEDS ORDERED: HYDROMORPHONE 1 MG/1 ML DISP.SYRIN ONE ×2 (05:46→07:09)
[2022-07-21] MEDS ORDERED: KETOROLAC TROMETHAMINE 30 MG INJ ONE (05:46)
[2022-07-21 07:17] LABS: HEMATOCRIT 33.7 % (31.2-41.9); MEAN CORPUSCULAR HEMOGLOBIN 24.3 uug (24.7-32.8); MEAN CORPUSCULAR VOLUME 76.9 fL (75.5-95.3); PLATELET COUNT (AUTO) 345 K/uL (179-408)
[2022-07-21 07:24] LABS: CARBON DIOXIDE 24 mmol/L (21-32); CHLORIDE 103 mmol/L (98-107); CREATININE 0.9 mg/dL (0.6-1.3); GLUCOSE 112 mg/dL (74-106); POTASSIUM 3.7 mmol/L (3.5-5.1); UREA NITROGEN, BLOOD 11 mg/dL (7-18)
--- NOTE | 2022-07-21 07:35 | NUR ---
Report given to Linda GUNDERSON
[2022-07-21 07:36] LABS: ALANINE AMINOTRANSFERASE 16 U/L (14-59); ALKALINE PHOSPHATASE 94 U/L (50-136); ASPARTATE AMINOTRANSFERASE 9 U/L (15-37); BILIRUBIN,DIRECT 0.1 mg/dL (0.0-0.2); BILIRUBIN,TOTAL 0.2 mg/dL (0.2-1.0); TOTAL PROTEIN, SERUM 8.5 g/dL (6.4-8.2)
--- NOTE | 2022-07-21 07:36 | NUR ---
Patient sleeping in gurney, eyes closed no signs of distress noted.
[2022-07-21] MEDS ORDERED: OXYCODONE HCL 5 MG TABLET PO ONE (08:45)
[2022-07-21] MEDS ORDERED: OXYCODONE HCL 5 MG TABLET ONE (09:14)
--- NOTE | 2022-07-21 09:43 | NUR ---
IV removed. Catheter intact and site benign. Pressure and 4x4 gauze applied to site. No bleeding noted. Patient discharged to home by Dr Louise in stable condition with steady gait. Written and verbal after care instructions given. Patient verbalized understanding and compliance of instructions. Stressed follow up with primary doctor and physical education department chair or return to ER for worsening s/s.
== END 2022-07-21 09:43 | disposition home or self-care (01) ==
LOC: ER 05:10
DX: M79.10 Myalgia, unspecified site (principal); G89.4 Chronic pain syndrome; R07.89 Other chest pain; R10.2 Pelvic and perineal pain; Z86.2 Personal history of diseases of the blood and blood-forming organs and certain disorders involving the immune mechanism; Z86.73 Personal history of transient ischemic attack (TIA), and cerebral infarction without residual deficits; Z90.49 Acquired absence of other specified parts of digestive tract; Z88.0 Allergy status to penicillin; Z88.1 Allergy status to other antibiotic agents; Z79.899 Other long term (current) drug therapy; Z79.82 Long term (current) use of aspirin
CPT/HCPCS: 99285; 96374; 96375; 71045; 96361; 80076; 80048; 83880; 85025; 84484 ×2; 84702; 36415; 93005; 96376; J1200 ×2; J1885; J2405; J1170 ×4; J7040; A4663

== ENCOUNTER 2022-08-22 22:05 | Emergency (ER) | payer OTHER ==
[~2022-08-22] VITALS: Ht 160 cm; Wt 99.8 kg
--- NOTE | 2022-08-22 23:15 | NUR ---
Dr. Diego in room with patient at bedside. MSE in progress
[2022-08-22] MEDS ORDERED: HYDROMORPHONE 1 MG/1 ML DISP.SYRIN IM ONE (23:45)
[2022-08-22] MEDS ORDERED: IV NORMAL SALINE 1000 ML BAG IV ONE (23:45)
[2022-08-23 00:13] LABS: HEMATOCRIT 34.7 % (31.2-41.9); MEAN CORPUSCULAR HEMOGLOBIN 24.6 uug (24.7-32.8); MEAN CORPUSCULAR VOLUME 77.5 fL (75.5-95.3); PLATELET COUNT (AUTO) 440 K/uL (179-408)
[2022-08-23] MEDS ORDERED: HYDROMORPHONE 2 MG/1 ML DISP.SYRIN ONE ×2 (00:17→02:50)
[2022-08-23 00:37] LABS: ALANINE AMINOTRANSFERASE 19 U/L (14-59); ALKALINE PHOSPHATASE 88 U/L (50-136); ASPARTATE AMINOTRANSFERASE 16 U/L (15-37); BILIRUBIN,DIRECT 0.1 mg/dL (0.0-0.2); BILIRUBIN,TOTAL 0.2 mg/dL (0.2-1.0); CARBON DIOXIDE 24 mmol/L (21-32); CHLORIDE 104 mmol/L (98-107); POTASSIUM 4.2 mmol/L (3.5-5.1); TOTAL PROTEIN, SERUM 8.3 g/dL (6.4-8.2); UREA NITROGEN, BLOOD 7 mg/dL (7-18)
[2022-08-23] MEDS ORDERED: diphenhydrAMINE 50 MG/1 ML VIAL IV ONE ×2 (01:15→02:45)
[2022-08-23] MEDS ORDERED: diphenhydrAMINE 50 MG/1 ML VIAL ONE ×2 (01:30→02:50)
[2022-08-23] MEDS ORDERED: HYDROMORPHONE 1 MG/1 ML DISP.SYRIN IV ONE (02:45)
--- NOTE | 2022-08-23 03:30 | NUR ---
Patient resting in bed, looking at cell phone, IVF complete. No voiced c/o pain or discomfort at this time, will continue to monitor.
[2022-08-23 04:44] VITALS: BP 124/78; TEMP 98; O2SAT 100
== END 2022-08-23 04:45 | disposition home or self-care (01) ==
LOC: ER 22:05
DX: D57.00 Hb-SS disease with crisis, unspecified (principal); R07.89 Other chest pain; Z88.0 Allergy status to penicillin; Z88.1 Allergy status to other antibiotic agents; Z79.2 Long term (current) use of antibiotics; Z79.899 Other long term (current) drug therapy; Z79.82 Long term (current) use of aspirin
CPT/HCPCS: 99285; 71045; 36415; 96374; 96361; 96375; 80076; 80048; 85025; 85730; 84484; 93005; 96376; 96372; J1200 ×2; J1170 ×2; J7040; 70030-TC; A4663

== ENCOUNTER 2022-10-13 22:17 | Emergency (ER) | payer OTHER ==
[~2022-10-13] VITALS: Ht 160 cm; Wt 102.1 kg
[2022-10-13] MEDS ORDERED: HYDROMORPHONE 1 MG/1 ML DISP.SYRIN IV ONE (23:00)
[2022-10-13] MEDS ORDERED: KETOROLAC TROMETHAMINE 30 MG INJ IVP ONE (23:00)
[2022-10-13] MEDS ORDERED: ONDANSETRON 4 MG/2 ML VIAL IV ONE (23:00)
[2022-10-13] MEDS ORDERED: diphenhydrAMINE 50 MG/1 ML VIAL IV ONE (23:00)
[2022-10-13 23:17] LABS: CALCIUM 8.8 mg/dL (8.5-10.1); CREATININE 1.1 mg/dL (0.6-1.3); POTASSIUM 3.6 mmol/L (3.5-5.1)
[2022-10-14] MEDS ORDERED: HYDROMORPHONE 2 MG/1 ML DISP.SYRIN ONE ×2 (00:01→00:58)
[2022-10-14] MEDS ORDERED: HYDROMORPHONE 1 MG/1 ML DISP.SYRIN ONE ×2 (00:01→00:58)
[2022-10-14] MEDS ORDERED: KETOROLAC TROMETHAMINE 30 MG INJ ONE (00:01)
[2022-10-14 00:09] LABS: BASOPHILS % (AUTO) 0.2 % (0.0-2.0); EOSINOPHILS # (AUTO) 0.2 K/uL (0.0-0.7); EOSINOPHILS % (AUTO) 2.7 % (0.0-7.0); HEMATOCRIT 32.4 % (31.2-41.9); HEMOGLOBIN 10.5 g/dL (10.9-14.3); LYMPHOCYTES # (AUTO) 2.1 K/uL (0.8-4.8); LYMPHOCYTES % (AUTO) 26.1 % (20.5-51.5); MEAN CORPUSCULAR HGB CONC 33 g/dL (32.3-35.6); MONOCYTES # (AUTO) 0.6 K/uL (0.1-1.30); MONOCYTES % (AUTO) 7.8 % (0.0-11.0); NEUTROPHILS # (AUTO) 5.2 K/uL (1.8-8.9); NEUTROPHILS % (AUTO) 63.2 % (38.5-71.5); PLATELET COUNT (AUTO) 444 K/uL (179-408); RED CELL DISTRIBUTION WIDTH 17.9 % (12.3-17.7); WHITE BLOOD COUNT (AUTO) 8.2 K/uL (3.8-11.8)
[2022-10-14 00:10] LABS: DIFFERENTIAL COMMENT 1
[2022-10-14] MEDS ORDERED: HYDR-3980 PO (00:57)
[2022-10-14] MEDS ORDERED: ONDA4TAB5 PO (00:57)
[2022-10-14] MEDS ORDERED: ONDANSETRON 4 MG/2 ML VIAL ONE ×2 (00:58)
[2022-10-14] MEDS ORDERED: diphenhydrAMINE 50 MG/1 ML VIAL ONE ×2 (00:58)
[2022-10-14] MEDS ORDERED: HYDROMORPHONE 1 MG/1 ML DISP.SYRIN IV ONE (01:00)
[2022-10-14] MEDS ORDERED: ONDANSETRON 4 MG/2 ML VIAL IV ONE (01:00)
[2022-10-14] MEDS ORDERED: diphenhydrAMINE 50 MG/1 ML VIAL IV ONE (01:00)
[2022-10-14] MEDS ORDERED: HYDR-4209 PO (01:41)
[2022-10-14 02:22] VITALS: BP 123/68; TEMP 97.9; O2SAT 99
== END 2022-10-14 02:20 | disposition home or self-care (01) ==
LOC: ER 22:19
DX: D57.00 Hb-SS disease with crisis, unspecified (principal); G89.4 Chronic pain syndrome; Z86.73 Personal history of transient ischemic attack (TIA), and cerebral infarction without residual deficits; Z88.0 Allergy status to penicillin; Z88.1 Allergy status to other antibiotic agents; Z79.899 Other long term (current) drug therapy; Z79.82 Long term (current) use of aspirin
CPT/HCPCS: 99284; 80048; 85025; 36415; 96374; 96375; 96376; J1200 ×2; J1885; J2405 ×2; J1170 ×4; A4663

== ENCOUNTER 2022-11-07 13:00 | Emergency (ER) | payer OTHER ==
[~2022-11-07] VITALS: Ht 160 cm; Wt 102.1 kg
[~2022-11-07 13:00] MED LIST changes: +HYDR-4209 PO
[2022-11-07] MEDS ORDERED: IV NS 1000 ML 1,000 ML IV ONE ×2 (13:15→13:30)
[2022-11-07] MEDS ORDERED: HYDROMORPHONE 1 MG/1 ML DISP.SYRIN IV ONE ×2 (13:30→16:15)
[2022-11-07 13:39] LABS: BASOPHILS # (AUTO) 0.1 K/UL (0.0-0.2); BASOPHILS % (AUTO) 1.1 % (0.0-2.0); EOSINOPHILS # (AUTO) 0.3 K/uL (0.0-0.7); EOSINOPHILS % (AUTO) 3.2 % (0.0-7.0); HEMOGLOBIN 9.7 g/dL (10.9-14.3); LYMPHOCYTES # (AUTO) 2.2 K/uL (0.8-4.8); LYMPHOCYTES % (AUTO) 23.3 % (20.5-51.5); MEAN CORPUSCULAR HEMOGLOBIN 24.1 uug (24.7-32.8); MEAN CORPUSCULAR HGB CONC 31 g/dL (32.3-35.6); MEAN CORPUSCULAR VOLUME 76.8 fL (75.5-95.3); MONOCYTES # (AUTO) 1.1 K/uL (0.1-1.30); MONOCYTES % (AUTO) 11.7 % (0.0-11.0); NEUTROPHILS # (AUTO) 5.8 K/uL (1.8-8.9); NEUTROPHILS % (AUTO) 60.7 % (38.5-71.5); PLATELET COUNT (AUTO) 281 K/uL (179-408); RED BLOOD CELL COUNT(AUTO) 4.03 MIL/uL (3.63-4.92); RED CELL DISTRIBUTION WIDTH 17.9 % (12.3-17.7); WHITE BLOOD COUNT (AUTO) 9.6 K/uL (3.8-11.8)
[2022-11-07 14:01] LABS: DIFFERENTIAL COMMENT 1
[2022-11-07] MEDS ORDERED: HYDROMORPHONE 2 MG/1 ML DISP.SYRIN ONE ×2 (14:07→16:06)
[2022-11-07 14:10] LABS: CALCIUM 8.7 mg/dL (8.5-10.1); CARBON DIOXIDE 23 mmol/L (21-32); CHLORIDE 104 mmol/L (98-107); GLUCOSE 120 mg/dL (74-106); POTASSIUM 3.4 mmol/L (3.5-5.1); SODIUM SERUM 136 mmol/L (136-145); UREA NITROGEN, BLOOD 7 mg/dL (7-18)
[2022-11-07 14:16] LABS: ALANINE AMINOTRANSFERASE 12 U/L (14-59); ALBUMIN 3.1 g/dL (3.4-5.0); ALKALINE PHOSPHATASE 71 U/L (50-136); ASPARTATE AMINOTRANSFERASE 9 U/L (15-37); BILIRUBIN,DIRECT < 0.1 mg/dL (0.0-0.2); BILIRUBIN,TOTAL 0.3 mg/dL (0.2-1.0); TOTAL PROTEIN, SERUM 7.5 g/dL (6.4-8.2)
[2022-11-07] MEDS ORDERED: diphenhydrAMINE 50 MG CAPSULE ONE (14:21)
[2022-11-07] MEDS ORDERED: diphenhydrAMINE 50 MG CAPSULE PO ONE (14:30)
[2022-11-07 15:03] LABS: *BILIRUBIN,URIN NEGATIVE (NEGATIVE); *BLOOD, URINE 1+ (NEGATIVE); *CLARITY,URINE CLEAR (CLEAR); *COLOR,URINE YELLOW (YELLOW); *KETONES,URINE NEGATIVE (NEGATIVE); *PROTEIN,URINE NEGATIVE (NEGATIVE); *UROBILINOGEN,URINE 0.2 E.U./dl (NORMAL); LEUKOCYTE ESTERASE ,URINE NEGATIVE (NEGATIVE); NITRITE, URINE NEGATIVE (NEGATIVE); UGLUCOSE NEGATIVE (NEGATIVE)
[2022-11-07 15:23] LABS: BACTERIA,URINE FEW /HPF (NONE SEEN)
[2022-11-07 15:24] LABS: SQUAMOUS EPITHELIAL CELL,UR MODERATE /HPF (NONE SEEN)
[2022-11-07 15:25] LABS: WBC,URINE 0-3 /HPF (0-3)
[2022-11-07 17:06] LABS: *URINE HCG, QUAL NEGATIVE (NEGATIVE)
[2022-11-07 17:13] VITALS: BP 109/60; TEMP 98.9; O2SAT 99
== END 2022-11-07 17:32 | disposition home or self-care (01) ==
LOC: ER 13:00
DX: D57.00 Hb-SS disease with crisis, unspecified (principal); Z86.73 Personal history of transient ischemic attack (TIA), and cerebral infarction without residual deficits; Z88.0 Allergy status to penicillin; Z88.1 Allergy status to other antibiotic agents; Z79.82 Long term (current) use of aspirin; Z79.899 Other long term (current) drug therapy
CPT/HCPCS: 99284; 96374; 96361; 80076; 80048; 81001; 84703; 85025; 85044; 36415; 96376; Q0163; J1170 ×2; J7040 ×2; 70030-TC; A4663

== ENCOUNTER 2023-01-20 05:01 | Emergency (ER) | payer OTHER ==
[~2023-01-20] VITALS: Ht 160 cm; Wt 99.8 kg
[2023-01-20] MEDS ORDERED: IV NORMAL SALINE 1000 ML BAG IV ONE (05:45)
[2023-01-20] MEDS ORDERED: ACETAMINOPHEN 650 MG/20.3 ML LIQUID UDC PO ONE (05:45)
[2023-01-20] MEDS ORDERED: diphenhydrAMINE 50 MG/1 ML VIAL IV ONE ×3 (05:45→10:00)
[2023-01-20] MEDS ORDERED: ONDANSETRON 4 MG/2 ML VIAL IV ONE (05:45)
[2023-01-20] MEDS ORDERED: HYDROMORPHONE 1 MG/1 ML DISP.SYRIN IV ONE ×2 (05:45→10:00)
[2023-01-20] MEDS ORDERED: ONDANSETRON 4 MG/2 ML VIAL ONE (06:07)
[2023-01-20] MEDS ORDERED: ACETAMINOPHEN 325 MG TABLET ONE (06:07)
[2023-01-20] MEDS ORDERED: HYDROMORPHONE 1 MG/1 ML DISP.SYRIN ONE ×3 (06:07→08:39)
[2023-01-20] MEDS ORDERED: diphenhydrAMINE 50 MG/1 ML VIAL ONE ×4 (06:07→10:18)
[2023-01-20] MEDS ORDERED: HYDROMORPHONE 1 MG/1 ML DISP.SYRIN IM ONE ×2 (06:45→08:45)
[2023-01-20] MEDS ORDERED: HYDROMORPHONE 2 MG/1 ML DISP.SYRIN ONE ×3 (06:55→10:18)
[2023-01-20] MEDS ORDERED: MAGNESIUM HYDROXIDE 30 ML LIQUID UDC PO ONE (10:00)
[2023-01-20] MEDS ORDERED: MAGNESIUM HYDROXIDE 30 ML LIQUID UDC ONE (10:18)
[2023-01-20] MEDS ORDERED: HYDR-3980 PO (10:33)
[2023-01-20 10:41] VITALS: BP 124/68; TEMP 98.1; O2SAT 97
== END 2023-01-20 11:30 | disposition home or self-care (01) ==
LOC: ER 05:12
DX: D57.00 Hb-SS disease with crisis, unspecified (principal); G89.29 Other chronic pain; F11.10 Opioid abuse, uncomplicated; Z88.0 Allergy status to penicillin; Z88.1 Allergy status to other antibiotic agents; Z86.73 Personal history of transient ischemic attack (TIA), and cerebral infarction without residual deficits; Z79.899 Other long term (current) drug therapy; Z79.82 Long term (current) use of aspirin
CPT/HCPCS: 99284; 96374; 96375; 96376; 96372 ×2; J1200 ×4; J2405; J1170 ×6; J7040

== ENCOUNTER 2023-02-18 16:22 | Emergency (ER) | payer SELFPAY ==
[~2023-02-18] VITALS: Ht 160 cm; Wt 99.8 kg
[2023-02-18] MEDS ORDERED: KETOROLAC TROMETHAMINE 30 MG INJ IVP ONE (18:00)
[2023-02-18] MEDS ORDERED: IV NORMAL SALINE 1000 ML BAG IV ONE (18:00)
[2023-02-18] MEDS ORDERED: HYDROMORPHONE 1 MG/1 ML DISP.SYRIN IV ONE (18:00)
[2023-02-18] MEDS ORDERED: diphenhydrAMINE 50 MG/1 ML VIAL IV ONE (18:00)
[2023-02-18] MEDS ORDERED: diphenhydrAMINE 50 MG/1 ML VIAL ONE (20:06)
[2023-02-18] MEDS ORDERED: KETOROLAC TROMETHAMINE 30 MG INJ ONE (20:06)
[2023-02-18] MEDS ORDERED: HYDROMORPHONE 1 MG/1 ML DISP.SYRIN ONE (20:06)
[2023-02-18 21:16] VITALS: BP 111/44; O2SAT 100
== END 2023-02-18 21:17 | disposition home or self-care (01) ==
LOC: ER 16:24
DX: D57.00 Hb-SS disease with crisis, unspecified (principal); M25.552 Pain in left hip; Z79.899 Other long term (current) drug therapy; Z88.0 Allergy status to penicillin; Z88.1 Allergy status to other antibiotic agents
CPT/HCPCS: A4606; A4663; J1170; J1200; J1885; J7040

== ENCOUNTER 2023-03-29 11:34 | Emergency (ER) | payer SELFPAY ==
[~2023-03-29] VITALS: Ht 160 cm; Wt 104.3 kg
[2023-03-29] MEDS ORDERED: diphenhydrAMINE 50 MG/1 ML VIAL ONE ×2 (13:08→17:08)
[2023-03-29] MEDS ORDERED: HYDROMORPHONE 2 MG/1 ML DISP.SYRIN ONE ×2 (13:09→17:08)
[2023-03-29] MEDS: diphenhydrAMINE 50 MG/1 ML VIAL IV ONE ×2 (13:10→17:10)
[2023-03-29] MEDS: HYDROMORPHONE 1 MG/1 ML DISP.SYRIN IV ONE ×2 (13:12→17:05)
[2023-03-29 17:15] VITALS: O2SAT 98
== END 2023-03-29 18:48 | disposition home or self-care (01) ==
LOC: ER 11:37
DX: G89.29 Other chronic pain (principal); F11.29 Opioid dependence with unspecified opioid-induced disorder; Z98.890 Other specified postprocedural states; Z79.899 Other long term (current) drug therapy; Z60.2 Problems related to living alone
CPT/HCPCS: 99284; 96374; 96375; 96376; J1200 ×2; J1170 ×2; A4606; A4663

== ENCOUNTER 2023-06-19 18:33 | Emergency (ER) | payer SELFPAY ==
[~2023-06-19] VITALS: Ht 160 cm; Wt 104.3 kg
[~2023-06-19 18:33] MED LIST changes: -DABI150C PO; -DOXY100T2 PO; -HYDR-3980 PO; -HYDR-4209 PO; -HYDR25SU33 RC; -OXYC-128 PO
[2023-06-19] MEDS ORDERED: HYDROMORPHONE 2 MG/1 ML DISP.SYRIN ONE ×2 (19:43→21:11)
[2023-06-19] MEDS ORDERED: diphenhydrAMINE 50 MG/1 ML VIAL ONE ×2 (19:45→21:11)
[2023-06-19] MEDS: diphenhydrAMINE 50 MG/1 ML VIAL IV ONE ×2 (19:54→21:19)
[2023-06-19] MEDS: HYDROMORPHONE 1 MG/1 ML DISP.SYRIN IV ONE ×2 (19:54→21:20)
[2023-06-19] MEDS: IV NORMAL SALINE 1000 ML BAG IV ONE (20:00)
[2023-06-19 20:05] LABS: BASOPHILS # (AUTO) 0.1 K/UL (0.0-0.2); DIFFERENTIAL COMMENT 0; EOSINOPHILS # (AUTO) 0.5 K/uL (0.0-0.7); EOSINOPHILS % (AUTO) 4.8 % (0.0-7.0); HEMATOCRIT 29.8 % (31.2-41.9); HEMOGLOBIN 9.3 g/dL (10.9-14.3); LYMPHOCYTES # (AUTO) 1.9 K/uL (0.8-4.8); MEAN CORPUSCULAR HEMOGLOBIN 21.1 uug (24.7-32.8); MEAN CORPUSCULAR HGB CONC 31 g/dL (32.3-35.6); MEAN CORPUSCULAR VOLUME 67.5 fL (75.5-95.3); MONOCYTES # (AUTO) 0.8 K/uL (0.1-1.30); MONOCYTES % (AUTO) 7.8 % (0.0-11.0); NEUTROPHILS # (AUTO) 7.3 K/uL (1.8-8.9); NEUTROPHILS % (AUTO) 68.4 % (38.5-71.5); PLATELET COUNT (AUTO) 347 K/uL (179-408); RED BLOOD CELL COUNT(AUTO) 4.42 MIL/uL (3.63-4.92); RED CELL DISTRIBUTION WIDTH 19.8 % (12.3-17.7); WHITE BLOOD COUNT (AUTO) 10.6 K/uL (3.8-11.8)
[2023-06-19 20:07] LABS: CALCIUM 8.7 mg/dL (8.5-10.1)
[2023-06-19 22:24] LABS: EOSINOPHILS % (MANUAL) 4 % (0-8); LYMPHOCYTES % (MANUAL) 26 % (20-40); MONOCYTES % (MANUAL) 2 % (2-10); NEUTROPHILS % (MANUAL) 68 % (42-75)
[2023-06-19 22:25] LABS: ANISOCYTOSIS 1+; HYPOCHROMASIA 2+; PLATELET ESTIMATE ADEQUATE
[2023-06-19 22:26] LABS: OVALOCYTES 1+; TARGET CELLS 1+
[2023-06-19 22:27] VITALS: BP 124/66; TEMP 97.8; O2SAT 100
== END 2023-06-19 21:41 | disposition home or self-care (01) ==
LOC: ER 18:35
DX: D57.00 Hb-SS disease with crisis, unspecified (principal); M25.561 Pain in right knee; Z79.82 Long term (current) use of aspirin; Z98.890 Other specified postprocedural states; Z79.899 Other long term (current) drug therapy; Z60.2 Problems related to living alone; Z88.0 Allergy status to penicillin; Z88.1 Allergy status to other antibiotic agents
CPT/HCPCS: 36415; 70030-TC; 85025; A4606; A4663; J1170; J1200; J7040

== ENCOUNTER 2023-07-29 18:05 | Emergency (ER) | payer SELFPAY ==
[~2023-07-29] VITALS: Ht 160 cm; Wt 108.9 kg
[2023-07-29 18:49] LABS: BASOPHILS # (AUTO) 0.1 K/UL (0.0-0.2); BASOPHILS % (AUTO) 1.6 % (0.0-2.0); EOSINOPHILS # (AUTO) 0.4 K/uL (0.0-0.7); EOSINOPHILS % (AUTO) 4.3 % (0.0-7.0); HEMATOCRIT 28.4 % (31.2-41.9); HEMOGLOBIN 8.4 g/dL (10.9-14.3); LYMPHOCYTES # (AUTO) 1.3 K/uL (0.8-4.8); LYMPHOCYTES % (AUTO) 15.3 % (20.5-51.5); MEAN CORPUSCULAR HEMOGLOBIN 20.1 uug (24.7-32.8); MEAN CORPUSCULAR HGB CONC 30 g/dL (32.3-35.6); MEAN CORPUSCULAR VOLUME 68.1 fL (75.5-95.3); MONOCYTES # (AUTO) 0.4 K/uL (0.1-1.30); MONOCYTES % (AUTO) 4.3 % (0.0-11.0); NEUTROPHILS # (AUTO) 6.4 K/uL (1.8-8.9); NEUTROPHILS % (AUTO) 74.5 % (38.5-71.5); PLATELET COUNT (AUTO) 401 K/uL (179-408); RED BLOOD CELL COUNT(AUTO) 4.17 MIL/uL (3.63-4.92); RED CELL DISTRIBUTION WIDTH 20.2 % (12.3-17.7); WHITE BLOOD COUNT (AUTO) 8.5 K/uL (3.8-11.8)
[2023-07-29 18:54] LABS: DIFFERENTIAL COMMENT 1
[2023-07-29] MEDS ORDERED: HYDROMORPHONE 2 MG/1 ML DISP.SYRIN ONE (18:54)
[2023-07-29] MEDS ORDERED: HYDROMORPHONE 1 MG/1 ML DISP.SYRIN ONE ×3 (18:54→21:01)
[2023-07-29] MEDS ORDERED: diphenhydrAMINE 50 MG/1 ML VIAL ONE ×3 (18:55→21:01)
[2023-07-29] MEDS: diphenhydrAMINE 50 MG/1 ML VIAL IV ONE ×3 (19:01→21:08)
[2023-07-29] MEDS: HYDROMORPHONE 1 MG/1 ML DISP.SYRIN IV ONE ×3 (19:02→21:08)
[2023-07-29] MEDS: IV NORMAL SALINE 1000 ML BAG IV ONE (19:02)
[2023-07-29 19:26] LABS: CARBON DIOXIDE 26 mmol/L (21-32); CHLORIDE 105 mmol/L (98-107); CREATININE 0.9 mg/dL (0.6-1.3); GLUCOSE 128 mg/dL (74-106); SODIUM SERUM 141 mmol/L (136-145); UREA NITROGEN, BLOOD 6 mg/dL (7-18)
[2023-07-29 19:32] LABS: ALANINE AMINOTRANSFERASE 12 U/L (14-59); ALBUMIN 3.1 g/dL (3.4-5.0); ALKALINE PHOSPHATASE 85 U/L (50-136); ASPARTATE AMINOTRANSFERASE 12 U/L (15-37); BILIRUBIN,DIRECT < 0.1 mg/dL (0.0-0.2); BILIRUBIN,TOTAL 0.2 mg/dL (0.2-1.0)
[2023-07-29] MEDS ORDERED: HYDR-3980 PO (20:22)
[2023-07-29 21:58] VITALS: BP 139/85; TEMP 98.6; O2SAT 100
== END 2023-07-29 21:59 | disposition home or self-care (01) ==
LOC: ER 18:06
DX: D57.00 Hb-SS disease with crisis, unspecified (principal); Z98.890 Other specified postprocedural states; Z79.899 Other long term (current) drug therapy; Z60.2 Problems related to living alone; Z88.0 Allergy status to penicillin; Z88.1 Allergy status to other antibiotic agents
CPT/HCPCS: 99284; 96374; 96361; 96375; 80076; 80048; 85025; 36415; 96376; J1200 ×3; J1170 ×4; J7040; A4606; A4663

== ENCOUNTER 2023-10-05 11:42 | Emergency (ER) | payer SELFPAY ==
[~2023-10-05] VITALS: Ht 160 cm; Wt 108.9 kg
[~2023-10-05 11:42] MED LIST changes: +HYDR-3980 PO
[2023-10-05] MEDS: IV NORMAL SALINE 1000 ML BAG IV ONE (12:00)
[2023-10-05] MEDS ORDERED: diphenhydrAMINE 50 MG/1 ML VIAL ONE ×2 (12:07→13:43)
[2023-10-05] MEDS ORDERED: HYDROMORPHONE 1 MG/1 ML DISP.SYRIN ONE (12:07)
[2023-10-05] MEDS ORDERED: HYDROMORPHONE 2 MG/1 ML DISP.SYRIN ONE ×2 (12:07→13:43)
[2023-10-05] MEDS: HYDROMORPHONE 1 MG/1 ML DISP.SYRIN IV ONE ×2 (12:07→13:45)
[2023-10-05] MEDS: diphenhydrAMINE 50 MG/1 ML VIAL IV ONE ×2 (12:09→13:43)
[2023-10-05 12:40] LABS: ALBUMIN 3.3 g/dL (3.4-5.0); BILIRUBIN,TOTAL 0.3 mg/dL (0.2-1.0); CALCIUM 8.9 mg/dL (8.5-10.1); CREATININE 1.1 mg/dL (0.6-1.3); POTASSIUM 3.7 mmol/L (3.5-5.1); TOTAL PROTEIN, SERUM 8.2 g/dL (6.4-8.2)
[2023-10-05 12:53] LABS: BASOPHILS % (AUTO) 0.4 % (0.0-2.0); EOSINOPHILS # (AUTO) 0.2 K/uL (0.0-0.7); HEMOGLOBIN 10.9 g/dL (10.9-14.3); LYMPHOCYTES # (AUTO) 2.2 K/uL (0.8-4.8); LYMPHOCYTES % (AUTO) 23.2 % (20.5-51.5); MEAN CORPUSCULAR HEMOGLOBIN 22.4 uug (24.7-32.8); MEAN CORPUSCULAR HGB CONC 31 g/dL (32.3-35.6); MEAN CORPUSCULAR VOLUME 71.6 fL (75.5-95.3); MONOCYTES # (AUTO) 0.6 K/uL (0.1-1.30); MONOCYTES % (AUTO) 6.5 % (0.0-11.0); NEUTROPHILS # (AUTO) 6.5 K/uL (1.8-8.9); NEUTROPHILS % (AUTO) 67.9 % (38.5-71.5); PLATELET COUNT (AUTO) 324 K/uL (179-408); RED BLOOD CELL COUNT(AUTO) 4.89 MIL/uL (3.63-4.92); RED CELL DISTRIBUTION WIDTH 22.5 % (12.3-17.7); WHITE BLOOD COUNT (AUTO) 9.6 K/uL (3.8-11.8)
[2023-10-05] MEDS ORDERED: HYDR2TAB4 PO (14:01)
[2023-10-05 14:08] VITALS: BP 119/71; O2SAT 97
== END 2023-10-05 14:08 | disposition home or self-care (01) ==
LOC: ER 11:44
DX: D57.00 Hb-SS disease with crisis, unspecified (principal); Z86.73 Personal history of transient ischemic attack (TIA), and cerebral infarction without residual deficits; Z98.890 Other specified postprocedural states; Z79.899 Other long term (current) drug therapy; Z79.891 Long term (current) use of opiate analgesic; Z79.82 Long term (current) use of aspirin; Z60.2 Problems related to living alone; Z88.0 Allergy status to penicillin; Z88.1 Allergy status to other antibiotic agents
CPT/HCPCS: 99284; 96374; 96361; 96375; 80053; 85025; 36415; 96376; J1200 ×2; J1170 ×2; J7040; A4606; A4663

== ENCOUNTER 2023-10-16 14:00 | Emergency (ER) | payer SELFPAY ==
[~2023-10-16] VITALS: Ht 160 cm; Wt 99.8 kg
[~2023-10-16 14:00] MED LIST changes: +HYDR2TAB4 PO
[2023-10-16] MEDS ORDERED: HYDROMORPHONE 2 MG/1 ML DISP.SYRIN ONE ×4 (14:23→18:21)
[2023-10-16] MEDS ORDERED: ONDANSETRON 4 MG/2 ML VIAL ONE (14:23)
[2023-10-16] MEDS ORDERED: diphenhydrAMINE 50 MG/1 ML VIAL ONE ×3 (14:23→18:21)
[2023-10-16] MEDS: ONDANSETRON 4 MG/2 ML VIAL IV ONE (14:28)
[2023-10-16] MEDS: diphenhydrAMINE 50 MG/1 ML VIAL IV ONE ×3 (14:28→18:25)
[2023-10-16] MEDS: HYDROMORPHONE 1 MG/1 ML DISP.SYRIN IV ONE ×4 (14:29→18:23)
[2023-10-16 14:39] LABS: BASOPHILS # (AUTO) 0.2 K/UL (0.0-0.2); BASOPHILS % (AUTO) 1.2 % (0.0-2.0); EOSINOPHILS # (AUTO) 1.4 K/uL (0.0-0.7); EOSINOPHILS % (AUTO) 11.2 % (0.0-7.0); HEMOGLOBIN 11.2 g/dL (10.9-14.3); LYMPHOCYTES % (AUTO) 15.3 % (20.5-51.5); MEAN CORPUSCULAR HEMOGLOBIN 22.3 uug (24.7-32.8); MEAN CORPUSCULAR HGB CONC 30 g/dL (32.3-35.6); MEAN CORPUSCULAR VOLUME 73.7 fL (75.5-95.3); MONOCYTES # (AUTO) 0.8 K/uL (0.1-1.30); MONOCYTES % (AUTO) 6.4 % (0.0-11.0); NEUTROPHILS # (AUTO) 8.5 K/uL (1.8-8.9); NEUTROPHILS % (AUTO) 65.9 % (38.5-71.5); PLATELET COUNT (AUTO) 303 K/uL (179-408); RED BLOOD CELL COUNT(AUTO) 5.02 MIL/uL (3.63-4.92); RED CELL DISTRIBUTION WIDTH 22.7 % (12.3-17.7); WHITE BLOOD COUNT (AUTO) 12.9 K/uL (3.8-11.8)
[2023-10-16 14:47] LABS: CALCIUM 9.2 mg/dL (8.5-10.1); CREATININE 0.9 mg/dL (0.6-1.3)
[2023-10-16] MEDS: IV NS 1000 ML 1,000 ML IV ONE (15:20)
[2023-10-16 15:35] LABS: IRON, SERUM 25 ug/dL (50-175)
[2023-10-16] MEDS ORDERED: HYDR-3980 PO (18:21)
[2023-10-16] MEDS ORDERED: FERR325T23 PO (18:21)
[2023-10-16 18:30] VITALS: O2SAT 96
== END 2023-10-16 18:54 | disposition home or self-care (01) ==
LOC: ER 14:00
DX: D57.00 Hb-SS disease with crisis, unspecified (principal); F11.90 Opioid use, unspecified, uncomplicated; D50.0 Iron deficiency anemia secondary to blood loss (chronic); Z86.73 Personal history of transient ischemic attack (TIA), and cerebral infarction without residual deficits; Z79.899 Other long term (current) drug therapy; Z79.82 Long term (current) use of aspirin; Z98.890 Other specified postprocedural states; Z60.2 Problems related to living alone; Z88.0 Allergy status to penicillin
CPT/HCPCS: 99284; 96374; 96375; 96361; 80048; 83550; 85025; 36415; 96376; J1200 ×3; J2405; J1170 ×4; J7040 ×2; A4606; A4663

== ENCOUNTER 2023-11-25 09:16 | Emergency (ER) | payer SELFPAY ==
[~2023-11-25] VITALS: Ht 160 cm; Wt 99.8 kg
[~2023-11-25 09:16] MED LIST changes: +FERR325T23 PO
[2023-11-25] MEDS ORDERED: HYDROMORPHONE 1 MG/1 ML DISP.SYRIN ONE ×2 (10:11→10:57)
[2023-11-25] MEDS ORDERED: ONDANSETRON 4 MG/2 ML VIAL ONE (10:11)
[2023-11-25] MEDS ORDERED: diphenhydrAMINE 50 MG/1 ML VIAL ONE (10:12)
[2023-11-25] MEDS ORDERED: KETOROLAC TROMETHAMINE 15 MG INJ ONE (10:12)
[2023-11-25] MEDS: IV NORMAL SALINE 1000 ML BAG IV ONE (10:14)
[2023-11-25] MEDS: HYDROMORPHONE 1 MG/1 ML DISP.SYRIN IV ONE ×2 (10:15→10:58)
[2023-11-25] MEDS: KETOROLAC TROMETHAMINE 15 MG INJ IVP ONE (10:15)
[2023-11-25] MEDS: diphenhydrAMINE 50 MG/1 ML VIAL IV ONE (10:15)
[2023-11-25] MEDS: ONDANSETRON 4 MG/2 ML VIAL IV ONE (10:15)
[2023-11-25 11:32] VITALS: BP 130/72; TEMP 98; O2SAT 100
== END 2023-11-25 11:33 | disposition home or self-care (01) ==
LOC: ER 09:16
DX: D57.00 Hb-SS disease with crisis, unspecified (principal); Z86.73 Personal history of transient ischemic attack (TIA), and cerebral infarction without residual deficits; Z79.82 Long term (current) use of aspirin; Z60.2 Problems related to living alone; Z88.0 Allergy status to penicillin; Z88.1 Allergy status to other antibiotic agents; Z88.7 Allergy status to serum and vaccine
CPT/HCPCS: 99284; 96374; 96375; 96361; 96376; J1200; J1885; J2405; J1171 ×2; J7040; A4606; A4663

== ENCOUNTER 2024-01-30 19:02 | Emergency (ER) | payer SELFPAY ==
[~2024-01-30] VITALS: Ht 160 cm; Wt 108.9 kg
[2024-01-30 19:52] VITALS: O2SAT 97
== END 2024-01-31 01:00 | disposition left against medical advice (07) ==
LOC: ER 19:02
DX: D57.00 Hb-SS disease with crisis, unspecified (principal); Z53.21 Procedure and treatment not carried out due to patient leaving prior to being seen by health care provider
CPT/HCPCS: A4606; A4663

== ENCOUNTER 2024-02-09 11:42 | Emergency (ER) | payer SELFPAY ==
[~2024-02-09] VITALS: Ht 160 cm; Wt 108.9 kg
[2024-02-09 12:57] LABS: BASOPHILS % (AUTO) 0.3 % (0.0-2.0); DIFFERENTIAL COMMENT 1; EOSINOPHILS # (AUTO) 0.5 K/uL (0.0-0.7); EOSINOPHILS % (AUTO) 5.6 % (0.0-7.0); HEMATOCRIT 28.7 % (31.2-41.9); HEMOGLOBIN 8.9 g/dL (10.9-14.3); LYMPHOCYTES # (AUTO) 1.7 K/uL (0.8-4.8); LYMPHOCYTES % (AUTO) 17.8 % (20.5-51.5); MEAN CORPUSCULAR HGB CONC 31 g/dL (32.3-35.6); MEAN CORPUSCULAR VOLUME 70.9 fL (75.5-95.3); MONOCYTES # (AUTO) 0.6 K/uL (0.1-1.30); MONOCYTES % (AUTO) 6.1 % (0.0-11.0); NEUTROPHILS # (AUTO) 6.8 K/uL (1.8-8.9); NEUTROPHILS % (AUTO) 70.2 % (38.5-71.5); PLATELET COUNT (AUTO) 517 K/uL (179-408); RED BLOOD CELL COUNT(AUTO) 4.05 MIL/uL (3.63-4.92); RED CELL DISTRIBUTION WIDTH 19.2 % (12.3-17.7); WHITE BLOOD COUNT (AUTO) 9.6 K/uL (3.8-11.8)
[2024-02-09 13:08] LABS: CALCIUM 8.7 mg/dL (8.5-10.1); CREATININE 0.9 mg/dL (0.6-1.3)
[2024-02-09] MEDS ORDERED: METOCLOPRAMIDE HCL 10 MG/2 ML VIAL ONE (13:10)
[2024-02-09 13:14] LABS: ALBUMIN 3.2 g/dL (3.4-5.0); BILIRUBIN,DIRECT 0.1 mg/dL (0.0-0.2); BILIRUBIN,TOTAL 0.2 mg/dL (0.2-1.0); TOTAL PROTEIN, SERUM 8.1 g/dL (6.4-8.2)
[2024-02-09] MEDS: IV NORMAL SALINE 1000 ML BAG IV ONE (13:30)
[2024-02-09] MEDS ORDERED: MORPHINE SULFATE 2 MG/1 ML DISP.SYRIN ONE ×2 (13:37→13:42)
[2024-02-09] MEDS ORDERED: MORPHINE SULFATE 4 MG/1 ML DISP.SYRIN ONE (13:41)
[2024-02-09] MEDS ORDERED: diphenhydrAMINE 50 MG/1 ML VIAL ONE ×2 (13:54→16:20)
[2024-02-09] MEDS: MORPHINE SULFATE 10 MG/1 ML DISP.SYRIN IV ONE (14:00)
[2024-02-09] MEDS: METOCLOPRAMIDE HCL 10 MG/2 ML VIAL IV ONE (14:10)
[2024-02-09] MEDS: diphenhydrAMINE 50 MG/1 ML VIAL IV ONE ×2 (14:54→16:28)
[2024-02-09] MEDS ORDERED: HYDROMORPHONE 2 MG/1 ML DISP.SYRIN ONE (16:19)
[2024-02-09] MEDS: HYDROMORPHONE 1 MG/1 ML DISP.SYRIN IV ONE (16:27)
[2024-02-09 16:31] VITALS: BP 131/81; O2SAT 100
== END 2024-02-09 16:32 | disposition home or self-care (01) ==
LOC: ER 11:42
DX: D57.00 Hb-SS disease with crisis, unspecified (principal); Z79.82 Long term (current) use of aspirin; Z86.73 Personal history of transient ischemic attack (TIA), and cerebral infarction without residual deficits; Z88.0 Allergy status to penicillin; Z88.1 Allergy status to other antibiotic agents; Z88.7 Allergy status to serum and vaccine
CPT/HCPCS: 99284; 96374; 96375; 96361; 80076; 80048; 85025; 36415; 96376; J1200 ×2; J2765; J1171; J2270 ×3; J7040; A4606; A4663

== ENCOUNTER 2024-03-30 16:17 | Emergency (ER) | payer SELFPAY ==
[~2024-03-30] VITALS: Ht 160 cm; Wt 104.3 kg
[2024-03-30] MEDS: diphenhydrAMINE 50 MG/1 ML VIAL IV ONE (17:30)
[2024-03-30] MEDS: HYDROMORPHONE 1 MG/1 ML DISP.SYRIN IV ONE (17:30)
[2024-03-30] MEDS: IV NORMAL SALINE 1000 ML BAG IV ONE (17:30)
[2024-03-30] MEDS: KETOROLAC TROMETHAMINE 15 MG INJ IVP ONE (17:30)
[2024-03-30 17:42] LABS: BASOPHILS % (AUTO) 0.5 % (0.0-2.0); EOSINOPHILS # (AUTO) 0.1 K/uL (0.0-0.7); EOSINOPHILS % (AUTO) 1.5 % (0.0-7.0); HEMATOCRIT 27.6 % (31.2-41.9); HEMOGLOBIN 8.5 g/dL (10.9-14.3); LYMPHOCYTES # (AUTO) 1.4 K/uL (0.8-4.8); LYMPHOCYTES % (AUTO) 17.7 % (20.5-51.5); MEAN CORPUSCULAR HEMOGLOBIN 20.1 uug (24.7-32.8); MEAN CORPUSCULAR HGB CONC 31 g/dL (32.3-35.6); MEAN CORPUSCULAR VOLUME 65.3 fL (75.5-95.3); MONOCYTES # (AUTO) 0.5 K/uL (0.1-1.30); MONOCYTES % (AUTO) 6.2 % (0.0-11.0); NEUTROPHILS # (AUTO) 5.8 K/uL (1.8-8.9); NEUTROPHILS % (AUTO) 74.1 % (38.5-71.5); PLATELET COUNT (AUTO) 304 K/uL (179-408); RED BLOOD CELL COUNT(AUTO) 4.23 MIL/uL (3.63-4.92); RED CELL DISTRIBUTION WIDTH 20.2 % (12.3-17.7); RETICULOCYTE COUNT 1.1 % (0.5-2.2); WHITE BLOOD COUNT (AUTO) 7.9 K/uL (3.8-11.8)
[2024-03-30 17:43] LABS: DIFFERENTIAL COMMENT 1
[2024-03-30 17:48] LABS: CALCIUM 9.6 mg/dL (8.5-10.1); CREATININE 1.1 mg/dL (0.6-1.3); POTASSIUM 3.6 mmol/L (3.5-5.1)
[2024-03-30 17:54] LABS: ALBUMIN 3.7 g/dL (3.4-5.0); BILIRUBIN,TOTAL 0.4 mg/dL (0.2-1.0); TOTAL PROTEIN, SERUM 8.9 g/dL (6.4-8.2)
[2024-03-30] MEDS ORDERED: diphenhydrAMINE 50 MG/1 ML VIAL ONE (17:57)
[2024-03-30] MEDS ORDERED: KETOROLAC TROMETHAMINE 15 MG INJ ONE (17:57)
[2024-03-30] MEDS ORDERED: HYDROMORPHONE 2 MG/1 ML DISP.SYRIN ONE (17:58)
[2024-03-30 19:33] VITALS: BP 147/79; TEMP 98; O2SAT 96
== END 2024-03-30 19:39 | disposition home or self-care (01) ==
LOC: ER 16:17
DX: D57.00 Hb-SS disease with crisis, unspecified (principal); G89.29 Other chronic pain; M79.604 Pain in right leg; M79.605 Pain in left leg; R60.0 Localized edema; Z79.82 Long term (current) use of aspirin; Z86.73 Personal history of transient ischemic attack (TIA), and cerebral infarction without residual deficits; Z88.0 Allergy status to penicillin; Z88.1 Allergy status to other antibiotic agents; Z88.7 Allergy status to serum and vaccine
CPT/HCPCS: 99285; 93970; 96374; 96375; 96361; 80053; 85025; 85044; 36415; J1885; J1171; J1200; J7040; 70030-TC; A4606; A4663

== ENCOUNTER 2025-01-17 18:17 | Emergency (ER) | payer MEDICAID ==
[~2025-01-17] VITALS: Ht 160 cm; Wt 113.4 kg
[2025-01-17 18:26] VITALS: BP 148/98
[2025-01-17 19:38] LABS: PLATELET COUNT (AUTO) 433 K/uL (179-408); RED BLOOD CELL COUNT(AUTO) 4.01 MIL/uL (3.63-4.92); RED CELL DISTRIBUTION WIDTH 24.1 % (12.3-17.7); WHITE BLOOD COUNT (AUTO) 9.4 K/uL (3.8-11.8)
[2025-01-17 19:44] LABS: CREATININE 1.0 mg/dL (0.6-1.3); SODIUM SERUM 138.0 mmol/L (136-145); UREA NITROGEN, BLOOD 7.0 mg/dL (7-18)
[2025-01-17 19:50] LABS: ASPARTATE AMINOTRANSFERASE 13.0 U/L (15-37); LACTATE DEHYDROGENASE 163.0 U/L (81-234); TOTAL PROTEIN, SERUM 8.1 g/dL (6.4-8.2)
[2025-01-17] MEDS ORDERED: KETOROLAC TROMETHAMINE 15 MG INJ ONE (20:02)
[2025-01-17] MEDS ORDERED: ONDANSETRON 4 MG/2 ML VIAL ONE (20:02)
[2025-01-17] MEDS ORDERED: diphenhydrAMINE 50 MG/1 ML VIAL ONE (20:02)
[2025-01-17] MEDS ORDERED: HYDROMORPHONE 2 MG/1 ML DISP.SYRIN ONE (20:02)
[2025-01-17] MEDS: diphenhydrAMINE 50 MG/1 ML VIAL IV ONE (20:04)
[2025-01-17] MEDS: HYDROMORPHONE 1 MG/1 ML DISP.SYRIN IV ONE ×2 (20:05→21:15)
[2025-01-17] MEDS: ONDANSETRON 4 MG/2 ML VIAL IV ONE (20:05)
[2025-01-17] MEDS: KETOROLAC TROMETHAMINE 15 MG INJ IVP ONE (20:05)
[2025-01-17 20:10] LABS: EOSINOPHILS % (MANUAL) 12 % (0-8); LYMPHOCYTES % (MANUAL) 22 % (20-40); MONOCYTES % (MANUAL) 8 % (2-10); NEUTROPHILS % (MANUAL) 58 % (42-75); PLATELET ESTIMATE INCREASED
[2025-01-17] MEDS ORDERED: HYDROMORPHONE 1 MG/1 ML DISP.SYRIN ONE (21:14)
[2025-01-17 21:37] VITALS: BP 135/88; TEMP 97.8; O2SAT 99
== END 2025-01-17 21:39 | disposition home or self-care (01) ==
LOC: ER 18:17
DX: D57.00 Hb-SS disease with crisis, unspecified (principal); E66.01 Morbid (severe) obesity due to excess calories; F11.20 Opioid dependence, uncomplicated; F11.29 Opioid dependence with unspecified opioid-induced disorder; I51.9 Heart disease, unspecified; Z63.4 Disappearance and death of family member; Z79.01 Long term (current) use of anticoagulants; Z79.82 Long term (current) use of aspirin; Z88.0 Allergy status to penicillin; Z88.1 Allergy status to other antibiotic agents; Z88.7 Allergy status to serum and vaccine
CPT/HCPCS: 99284; 96374; 96375; 80053; 83615; 85007; 85027; 85044; 36415; 96376; J1885; J1200; J2405; J1171 ×2; 70030-TC; A4606; A4663